=== PATIENT | male | born 1950 | race American Indian/Alaskan Native ===

== ENCOUNTER 2018-08-19 08:26 | Emergency (ER) | payer MEDICARE ==
[2018-08-19] MEDS ORDERED: NACL 0.9% 1000 ML 1,000 ML ONE (09:29)
[2018-08-19] MEDS ORDERED: NACL 0.9% 1000 ML 1,000 ML IV ONE ×2 (09:30→11:12)
--- NOTE | 2018-08-19 10:01 | Emergency Department Report ---
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 Also history of prostate cancer. Patient is presented to the ER with his caregiver stating that he fell this morning and hit his head. Patient stated that he is okay. Patient does have an abrasion to the left forehead. He denied any loss of consciousness or knee weakness numbness or tingling sensation. No bowel or bladder incontinence. Patient found to have a low blood pressure in triage. MD Complaint: fall -: This morning Fall From: standing Fall Witnessed: yes, by living facility s Place Fall Occurred: [facility] Loss of Consciousness: none Prolonged Down Time?: no Symptoms Prior to Fall: none Location: head, neck Severity: moderate Quality: sharp Context: tripped/slipped - Related Data Allergies Allergy/AdvReac Type Severity Reaction Status Date / Time No Known Allergies Allergy Unverified 08/19/18 08:50 ED Review of Systems ROS: Stated complaint: LOW B/P Other details as noted in HPI Comment: All other systems reviewed and negative Constitutional: denies: chills, fever Respiratory: denies: cough, orthopnea, shortness of breath, SOB with exertion, SOB at rest Cardiovascular: denies: chest pain, palpitations, dyspnea on exertion Gastrointestinal: denies: abdominal pain, nausea, vomiting, diarrhea, constipation, hematemesis, melena, hematochezia Neurological: denies: headache, weakness, numbness, paresthesias, confusion, abnormal gait, vertigo ED Past Medical Hx - Past Medical History Additional medical history: PROSTATE CA - Surgical History Past Surgical History?: No - Social History Smoking Status: Never Smoker Substance Use Type: None ED Physical Exam - General Limitations: No Limitations General appearance: alert, in no apparent distress - Head Head exam: Present: other (abrasion to forehead) - ENT ENT exam: Present: normal exam, normal orophraynx - Neck Neck exam: Present: normal inspection, full ROM. Absent: tenderness, meningismus, lymphadenopathy, thyromegaly - Respiratory Respiratory exam: Present: normal lung sounds bilaterally. Absent: respiratory distress, wheezes, rales, rhonchi, stridor, chest wall tenderness, accessory muscle use, decreased breath sounds, prolonged expiratory - Cardiovascular Cardiovascular Exam: Present: regular rate, normal rhythm, normal heart sounds - GI/Abdominal GI/Abdominal exam: Present: soft, normal bowel sounds. Absent: distended, tenderness, guarding, rebound, rigid, organomegaly, mass, bruit, pulsatile mass , hernia - Extremities Exam Extremities exam: Present: normal inspection, full ROM, normal capillary refill. Absent: pedal edema, calf tenderness - Back Exam Back exam: Present: normal inspection, full ROM. Absent: tenderness, CVA tenderness (R), CVA tenderness (L), muscle spasm, paraspinal tenderness, vertebral tenderness - Neurological Exam Neurological exam: Present: alert, oriented X3, CN II-XII intact, normal gait, reflexes normal - Skin Skin exam: Present: warm, intact, normal color ED Course Vital Signs 08/19/18 08/19/18 08/19/18 08:51 09:56 10:00 Temperature 98.7 F Pulse Rate 74 76 79 Respiratory 20 17 Rate Blood Pressure 79/42 102/59 Blood Pressure [Right] O2 Sat by Pulse 97 97 91 Oximetry 08/19/18 10:06 Temperature 98.4 F Pulse Rate 77 Respiratory 17 Rate Blood Pressure Blood Pressure 100/58 [Right] O2 Sat by Pulse 100 Oximetry ED Medical Decision Making - Lab Data Result diagrams: 08/19/18 10:02 08/19/18 10:02 - EKG Data -: EKG Interpreted by Co EKG shows normal: sinus rhythm Rate: normal - EKG Data Interpretation: no acute changes - Radiology Data Radiology results: report reviewed Referring Physician: MADDI SALEH Patient Name: LINN WALDROP Date of : 1950 Sex: Male Report Date: 2018-08-19 Report Status: Finalized Findings [facility] [address] [place] [address] Cat Scan Report Signed Patient: LINN WALDROP MR#: [id number] : 1950 Acct:[id number] Age/Sex: 68 / M ADM Date: 08/19/18 Loc: ED Attending Dr: Ordering Physician: MADDI SALEH Date of Service: 08/19/18 Procedure(s): CT head/brain wo con Accession Number(s): [id number] cc: MADDI SALEH CT HEAD WITHOUT CONTRAST: HISTORY: Fall, head injury. TECHNIQUE: Sequential 2.5mm CT images. COMPARISON: none. FINDINGS: Cerebral Parenchyma: Within normal limits. Cerebellum: Within normal limits. Brainstem: Within normal limits. Ventricles: Normal. Sella: Normal. Extra-axial spaces: Normal. Basal Cisterns: Normal. Intracranial Hemorrhage: None. Midline Shift: None. Calvarium: Normal. Sinuses: Normal. Mastoid Air Cells: Normal. Visualized Orbits: Normal. IMPRESSION: Cranial CT scan within normal limits. Transcribed By: TTR Dictated By: JONELLE XAVIER JR, MD Electronically Authenticated By: JONELLE XAVIER JR, MD Signed Date/Time: 08/19/181046 DD/ 46 TD/TT: 08/19/181046 Referring Physician: MADDI SALEH Patient Name: LINN WALDROP Date of : 1950 Sex: Male Report Date: 2018-08-19 Report Status: Finalized Findings [facility] [address] [place] [address] Cat Scan Report Signed Patient: LINN WALDROP MR#: [id number] : 1950 Acct:[id number] Age/Sex: 68 / M ADM Date: 08/19/18 Loc: ED Attending Dr: Ordering Physician: MADDI SALEH Date of Service: 08/19/18 Procedure(s): CT cervical spine wo con Accession Number(s): [id number] cc: MADDI SALEH CT SCAN OF THE CERVICAL SPINE: HISTORY: Fall, neck pain. TECHNIQUE: Contiguous 1.25 mm axial images of the cervical spine were obtained. Sagittal and coronal reformatted images. FINDINGS: There is normal alignment of the cervical spine. The body, pedicles and posterior ligaments are intact. No evidence of fracture or subluxation is seen. Moderate degenerative disc disease is identified C5-6 and C6-7. Minimal diffuse facet arthropathy. The spinal canal appears normal. The prevertebral soft tissues appear normal. IMPRESSION: Cervical spondylosis. No acute process is noted. 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 Also history of prostate cancer. Patient is presented to the ER with his caregiver stating that he fell this morning and hit his head. Patient stated that he is okay. Patient does have an abrasion to the left forehead. He denied any loss of consciousness or knee weakness numbness or tingling sensation. No bowel or bladder incontinence. Patient found to have a low blood pressure in triage. Patient stated that he is feeling much better. Patient received a liter of IV fluids his blood pressure is now 125/64. Patient received 1 g of Rocephin for UTI. Patient to be discharged back home to his assisted and advised to follow -up with his primary care physician in the next 2-3 days. Patient also informed to return to the ER if his symptoms are not improving. Critical Care Time: Yes Critical care time in (mins) excluding proc time.: 30 Critical care attestation.: If time is entered above; I have spent that time in minutes in the direct care of this critically ill patient, excluding procedure time. ED Disposition Clinical Impression: Fall, Head injury, Neck injury, Hypotension, UTI (urinary tract infection) Disposition: - TO HOME OR SELFCARE Is pt being admited?: No Condition: Stable Instructions: Fall Prevention for Older Adults (ED), Minor Head Injury (ED), Hypotension (ED), Urinary Tract Infection in Men (ED) Referrals: PRIMARY CARE, [Primary Care Provider] - 3-5 Days
[2018-08-19 10:17] LABS: Basophils % (Auto) 0.3 % (0.0-1.8); Eosinophils # (Auto) 0.1 K/mm3 (0.0-0.4); Eosinophils % (Auto) 1.5 % (0.0-4.3); Hematocrit 48.4 % (35.5-45.6); Hemoglobin 16.3 gm/dl (11.8-15.2); Lymphocytes # (Auto) 0.6 K/mm3 (1.2-5.4); Lymphocytes % (Auto) 11.3 % (13.4-35.0); Mean Corpuscular HGB Conc 34 % (32-34); Mean Corpuscular Hemoglobin 36 pg (28-32); Mean Corpuscular Volume 106 fl (84-94); Monocytes # (Auto) 0.5 K/mm3 (0.0-0.8); Monocytes % (Auto) 8.3 % (0.0-7.3); Red Blood Count 4.58 M/mm3 (3.65-5.03); Red Cell Distribution Width 13.9 % (13.2-15.2)
[2018-08-19 10:27] LABS: INR 1.1 (0.87-1.13)
[2018-08-19 10:28] LABS: Partial Thromboplastin Time 26.2 Sec. (24.2-36.6)
[2018-08-19 10:37] LABS: BUN/Creatinine Ratio 21; Blood Urea Nitrogen 30 mg/dL (9-20); Hemolysis Index 24
[2018-08-19 10:45] LABS: Platelet Count 99 K/mm3 (140-440)
--- NOTE | 2018-08-19 10:48 | Cat Scan Report ---
CT HEAD WITHOUT CONTRAST: HISTORY: Fall, head injury. TECHNIQUE: Sequential 2.5mm CT images. COMPARISON: none. FINDINGS: Cerebral Parenchyma: Within normal limits. Cerebellum: Within normal limits. Brainstem: Within normal limits. Ventricles: Normal. Sella: Normal. Extra-axial spaces: Normal. Basal Cisterns: Normal. Intracranial Hemorrhage: None. Midline Shift: None. Calvarium: Normal. Sinuses: Normal. Mastoid Air Cells: Normal. Visualized Orbits: Normal. IMPRESSION: Cranial CT scan within normal limits.
--- NOTE | 2018-08-19 10:50 | Cat Scan Report ---
CT SCAN OF THE CERVICAL SPINE: HISTORY: Fall, neck pain. TECHNIQUE: Contiguous 1.25 mm axial images of the cervical spine were obtained. Sagittal and coronal reformatted images. FINDINGS: There is normal alignment of the cervical spine. The body, pedicles and posterior ligaments are intact. No evidence of fracture or subluxation is seen. Moderate degenerative disc disease is identified C5-6 and C6-7. Minimal diffuse facet arthropathy. The spinal canal appears normal. The prevertebral soft tissues appear normal. IMPRESSION: Cervical spondylosis. No acute process is noted.
[2018-08-19 11:43] LABS: Bilirubin,Urine NEG (Negative); Blood,Urine MOD (Negative); Color,Urine Yellow (Yellow); Mucus,Urine 1+ /HPF
[2018-08-19 11:47] LABS: Protein,Urine >500 mg/dL (Negative); WBC,Urine > 182.0 /HPF (0.0-6.0)
[2018-08-19] MEDS ORDERED: ROCEPHIN/NS 1 GM/50 ML 1 GM/50 ML BAG IV ONE (12:30)
[2018-08-19 12:46] VITALS: BP 145/82
== END 2018-08-19 13:06 | disposition home or self-care (01) ==
LOC: ED 08:26
DX: S09.90XA Unspecified injury of head, initial encounter (principal); S19.9XXA Unspecified injury of neck, initial encounter; I95.9 Hypotension, unspecified; N39.0 Urinary tract infection, site not specified; W01.198A Fall on same level from slipping, tripping and stumbling with subsequent striking against other object, initial encounter; Y93.89 Activity, other specified; Y92.128 Other place in nursing home as the place of occurrence of the external cause; Y99.8 Other external cause status
CPT/HCPCS: 36415; 70450; 72125; 80048; 81001; 84484; 85025; 85610; 85730; 93005; 93010; 96361; 96374; 99291; J0696; J7030

== ENCOUNTER 2018-08-22 13:22 | Inpatient (IN) | payer MEDICARE ==
[2018-08-22 15:02] LABS: Hematocrit 24.9 % (35.5-45.6); Hemoglobin 8.3 gm/dl (11.8-15.2); Mean Corpuscular HGB Conc 33 % (32-34); Mean Corpuscular Hemoglobin 36 pg (28-32); Mean Corpuscular Volume 109 fl (84-94); Red Blood Count 2.29 M/mm3 (3.65-5.03); Red Cell Distribution Width 13.9 % (13.2-15.2)
[2018-08-22 15:06] LABS: Platelet Count 148 K/mm3 (140-440)
--- NOTE | 2018-08-22 16:30 | Emergency Department Report ---
HPI - General Chief Complaint: Medical Clearance Time Seen by Provider: 08/22/18 16:03 - HPI HPI: 68-year-old [place] male presents to the emergency department from his personal long-term with a complaint of a drop in his hemoglobin. Patient was seen here at [facility] on 08/19 after having a fall. He was discharged home with a diagnosis of minor head injury, fall, and a urinary tract infection and prescribed Levaquin. The patient had a follow-up with his primary care physician and had some blood work done that showed a hemoglobin of 7.8. His hemoglobin during his initial emergency Department visit was about 16. The patient has some type of intellectual disability and/or autism and the animal caretaker is not currently bedside. The patient himself says that he has not had any discomfort and it does not appear as if he is having any obvious bleeding. He does have a prostate cancer history. ED Past Medical Hx - Past Medical History Previous Medical History?: Yes Additional medical history: PROSTATE CA hx. Autism, learning disability - Surgical History Past Surgical History?: No - Social History Smoking Status: Never Smoker Substance Use Type: None ED Review of Systems ROS: Stated complaint: HEMOGLOBIN LOW Other details as noted in HPI Comment: All other systems reviewed and negative Constitutional: denies: chills, fever Eyes: denies: eye pain, eye discharge, vision change ENT: denies: ear pain, throat pain Respiratory: denies: cough, shortness of breath, wheezing Cardiovascular: denies: chest pain, palpitations Gastrointestinal: denies: abdominal pain, nausea, diarrhea Genitourinary: denies: urgency, dysuria Musculoskeletal: denies: back pain, joint swelling, arthralgia Skin: denies: rash, lesions Neurological: denies: headache, weakness, paresthesias Physical Exam - Physical Exam Vital Signs: Vital Signs 08/22/18 08/22/18 08/22/18 13:51 15:50 15:51 Temperature 99.7 F H Pulse Rate 92 H Respiratory 16 15 13 Rate Blood Pressure 108/65 138/76 O2 Sat by Pulse 100 93 Oximetry 08/22/18 08/22/18 08/22/18 15:53 15:55 15:57 Temperature 97.9 F Pulse Rate 79 71 Respiratory 15 10 L Rate Blood Pressure 138/76 138/76 O2 Sat by Pulse 97 Oximetry Physical Exam: GENERAL: The patient is well-developed well-nourished. HENT: Normocephalic. Atraumatic. Patient has moist mucous membranes. EYES: Extraocular motions are intact. Pupils equal reactive to light bilaterally. NECK: Supple. Trachea is midline. CHEST/LUNGS: Clear to auscultation. There is no respiratory distress noted. HEART/CARDIOVASCULAR: Regular. There is no tachycardia. There is no murmur. ABDOMEN: Abdomen is soft, nontender. Patient has normal bowel sounds. There is no abdominal distention. SKIN: Skin is warm and dry. NEURO: The patient is awake, alert and cooperative. The patient has no focal neurologic deficits. Cranial nerves II through XII grossly intact. MUSCULOSKELETAL: There is no tenderness or deformity. There is no limitation range of motion. There is no evidence of acute injury. RECTAL: No gross blood. Stool positive on guaiac testing. ED Course Vital Signs 08/22/18 08/22/18 08/22/18 13:51 15:50 15:51 Temperature 99.7 F H Pulse Rate 92 H Respiratory 16 15 13 Rate Blood Pressure 108/65 138/76 O2 Sat by Pulse 100 93 Oximetry 08/22/18 08/22/18 08/22/18 15:53 15:55 15:57 Temperature 97.9 F Pulse Rate 79 71 Respiratory 15 10 L Rate Blood Pressure 138/76 138/76 O2 Sat by Pulse 97 Oximetry - Consultations Consultation #1: I spoke with the specialist icu talent acquisition assistant, Dr. Richards. The patient did have positive stool guaiac testing but there is no gross blood or melena seen. The patient's BUN also does not appear consistent with a GI bleed. However since there was the positive guaiac testing and this patient has had a large drop in his hemoglobin over the past 3 days, GI has agreed to see the patient has a consult. 08/22/18 23:05 ED Medical Decision Making - Lab Data Result diagrams: 08/22/18 19:44 08/22/18 16:32 - Radiology Data Radiology results: report reviewed PROCEDURE: CT ABDOMEN PELVIS W CON TECHNIQUE: Computerized axial tomography of the abdomen and pelvis was performed after the IV injection of iodinated nonionic contrast. HISTORY: abd pain, looking for source of bleeding COMPARISON: No prior studies are available for comparison. FINDINGS: Liver, spleen, adrenal glands are within normal limits. Left kidney is unremarkable. Right kidney demonstrates a well-defined simple cyst measuring 6.8 x 7.3 centimeters. Pancreatic duct is mildly dilated measuring 3.5 millimeters in the proximal body. There is no obstructive uropathy. Urinary bladder appears to have a large posterior diverticula and its louis are diffusely thickened with ill-defined outlines. Aorta is of normal caliber. There is no free fluid or free air. Gallbladder is unremarkable. Small bowel loops are within normal limits. Moderate degree residual stool is noted. Appendix is normal. Moderate degree degenerative changes are noted involving the lumbar spine. Vertebral height is normal. IMPRESSION: Urinary bladder is diffusely thickened and appears to contain a large posterior diverticulum. Cystitis is suspected. No obstructive uropathy. Pancreatic duct is mildly dilated. Clinical correlation is recommended. Transcribed By: [facility] Dictated By: ZACARIAS SANFORD Electronically Authenticated By: ZACARIAS SANFORD Signed Date/Time: 08/22/182038 - Medical Decision Making This patient came in for evaluation after a follow-up with his primary care physician showed about a 9 g drop in his hemoglobin in about 24 hours. He was here 3 days ago for a fall and had hemoglobin of 16.3 at that time. His hemoglobin for his PCP was about 7.5. Today it was 8.3 and 8.7. He has no complaints of any significant discomfort and no complaints of any recent bleeding. I did a rectal examination and there was no gross blood seen but stool was positive on guaiac testing. CT scan of the abdomen and pelvis was done with IV contrast that did not show any malignancy, obvious source of bleeding. It does show cystitis and the patient does have a urinary tract infection. It is possible the patient's first CBC 3 days ago was a false normal. However if that is not the case and the patient had a 9 g drop in hemoglobin and will need further evaluation as to why. The patient will be admitted to the hospital for further evaluation and gastroenterology consultation was accepted for admission by the hospitalist, Dr. Rose. - Differential Diagnosis malignancy, hemorrhoids, diverticulosis, iron deficiency Critical Care Time: No Critical care attestation.: If time is entered above; I have spent that time in minutes in the direct care of this critically ill patient, excluding procedure time. ED Disposition Clinical Impression: UTI (urinary tract infection) Qualifiers: Urinary tract infection type: acute cystitis Hematuria presence: with hematuria Qualified Code(s): N30.01 - Acute cystitis with hematuria Anemia Qualifiers: Anemia type: unspecified type Qualified Code(s): D64.9 - Anemia, unspecified Disposition: OP ADMIT IP TO THIS HOSP Is pt being admited?: Yes Condition: Fair Referrals: PRIMARY CARE, [Primary Care Provider] - 3-5 Days Time of Disposition: 23:09
[2018-08-22 16:56] LABS: INR 1.05 (0.87-1.13); Partial Thromboplastin Time 26.9 Sec. (24.2-36.6)
[2018-08-22 16:59] LABS: Alanine Aminotransferase 30 units/L (7-56); Albumin 4.1 g/dL (3.9-5); BUN/Creatinine Ratio 13; Blood Urea Nitrogen 15 mg/dL (9-20); Calcium 9.1 mg/dL (8.4-10.2); Hemolysis Index 41
[2018-08-22 17:28] LABS: Bilirubin,Urine NEG (Negative); Blood,Urine MOD (Negative); Color,Urine Yellow (Yellow); Urobilinogen,Urine < 2.0 mg/dL (<2.0)
[2018-08-22 17:29] LABS: WBC,Urine > 182.0 /HPF (0.0-6.0)
[2018-08-22] MEDS ORDERED: ROCEPHIN/NS 1 GM/50 ML 1 GM/50 ML BAG IV ONE (17:53)
[2018-08-22 19:53] LABS: Hematocrit 25.4 % (35.5-45.6); Hemoglobin 8.7 gm/dl (11.8-15.2)
--- NOTE | 2018-08-22 20:41 | Cat Scan Report ---
FINAL REPORT PROCEDURE: CT ABDOMEN PELVIS W CON TECHNIQUE: Computerized axial tomography of the abdomen and pelvis was performed after the IV injection of iodinated nonionic contrast. HISTORY: abd pain, looking for source of bleeding COMPARISON: No prior studies are available for comparison. FINDINGS: Liver, spleen, adrenal glands are within normal limits. Left kidney is unremarkable. Right kidney demonstrates a well-defined simple cyst measuring 6.8 x 7.3 centimeters. Pancreatic duct is mildly dilated measuring 3.5 millimeters in the proximal body. There is no obstructive uropathy. Urinary bladder appears to have a large posterior diverticula and its louis are diffusely thickened with ill-defined outlines. Aorta is of normal caliber. There is no free fluid or free air. Gallbladder is unremarkable. Small bowel loops are within normal limits. Moderate degree residual stool is noted. Appendix is normal. Moderate degree degenerative changes are noted involving the lumbar spine. Vertebral height is normal. IMPRESSION: Urinary bladder is diffusely thickened and appears to contain a large posterior diverticulum. Cystitis is suspected. No obstructive uropathy. Pancreatic duct is mildly dilated. Clinical correlation is recommended.
[2018-08-22] MEDS ORDERED: TYLENOL PO PRN (23:05)
[2018-08-22] MEDS ORDERED: SODIUM CHLORIDE FLUSH SYRINGE 10 ML IV PRN (23:05)
[2018-08-22] MEDS ORDERED: ZOFRAN IV PRN (23:05)
--- NOTE | 2018-08-22 23:09 | History and Physical Report ---
History of Present Illness Date of examination: 08/22/18 History of present illness: 68-year-old man with a history of prostate cancer, autism with recent from today primary care's office after lab work was done. It showed that he is a drop in his hemoglobin from 16 to 8. Patient cannot give a history, review of system unobtainable. PAST MEDICAL HISTORY: Prostate cancer PAST SURGICAL HISTORY: Unknown SOCIAL HISTORY: No alcohol, no drugs, tobacco FAMILY HISTORY: Unknown Medications and Allergies Allergies Allergy/AdvReac Type Severity Reaction Status Date / Time No Known Allergies Allergy Unverified 08/19/18 08:50 Exam - Physical Exam Narrative exam: Gen. appearance: Patient lying in bed, no apparent distress HEENT: Normocephalic, atraumatic, pupils equally round and reactive to light, extraocular movement intact, and no sclericterus,. No JVD or thyromegaly or nodule,neck supple, no carotid bruit ,mucous membranes moist, no exudate or erythema Heart: S1, S2, regular rate and rhythm Lungs: Clear bilaterally, breathing comfortable Abdomen: Positive bowel sounds, non-tender, nondistended, no organomegaly Extremity:no edema cyanosis, clubbing Skin: no rash, dry, warm Neuro: Oriented 3, cranial nerves II-12 intact, speech is fluent, motor and sensory intact Rectal: heme positive - Constitutional Vitals: Temp Pulse Resp BP Pulse Ox 98.1 F 75 16 137/87 96 08/22/18 20:24 08/22/18 20:24 08/22/18 20:24 08/22/18 20:24 08/22/18 20:24 Results - Labs CBC & Chem 7: 08/22/18 19:44 08/22/18 16:32 Labs: Abnormal lab results 08/22/18 08/22/18 08/22/18 Range/Units 14:45 17:04 19:44 RBC 2.29 L (3.65-5.03) M/mm3 Hgb 8.3 L 8.7 L (11.8-15.2) gm/dl Hct 24.9 L 25.4 L (35.5-45.6) % MCV 109 H (84-94) fl MCH 36 H (28-32) pg Urine WBC (Auto) > 182.0 H (0.0-6.0) /HPF - Imaging and Cardiology CT scan - abdomen: report reviewed CT scan - pelvis: report reviewed Assessment and Plan Assessment GI bleed Blood loss anemia Urinary tract infection History of prostate cancer Plan Admit to medicine check serial hemoglobin, start Protonix, IV fluid Unclear if this is a true drop in his hemoglobin as his labs appear to be hemoconcentrated On previous lab Consult GI, start IV Rocephin, follow cultures DVT prophylaxis
[2018-08-23 00:39] LABS: Hematocrit 24.8 % (35.5-45.6); Hemoglobin 8.3 gm/dl (11.8-15.2)
[2018-08-23 05:58] LABS: Basophils % (Auto) 0.5 % (0.0-1.8); Eosinophils # (Auto) 0.3 K/mm3 (0.0-0.4); Eosinophils % (Auto) 3.9 % (0.0-4.3); Hematocrit 23.8 % (35.5-45.6); Hemoglobin 8.1 gm/dl (11.8-15.2); Lymphocytes # (Auto) 1.9 K/mm3 (1.2-5.4); Mean Corpuscular HGB Conc 34 % (32-34); Mean Corpuscular Hemoglobin 36 pg (28-32); Mean Corpuscular Volume 105 fl (84-94); Monocytes # (Auto) 0.9 K/mm3 (0.0-0.8); Monocytes % (Auto) 13.4 % (0.0-7.3); Platelet Count 195 K/mm3 (140-440); Red Blood Count 2.27 M/mm3 (3.65-5.03); Red Cell Distribution Width 13.5 % (13.2-15.2)
[2018-08-23 06:14] LABS: BUN/Creatinine Ratio 11; Blood Urea Nitrogen 12 mg/dL (9-20); Calcium 8.5 mg/dL (8.4-10.2); Hemolysis Index 11
--- NOTE | 2018-08-23 08:36 | Progress Note ---
Assessment and Plan Assessment and plan: --Severe anemia; Significant drop of hemoglobin from 16-8, last 3-4 days Type and cross, transfuse PRBC as needed --Possible GI bleeding; IV Protonix, nothing by mouth status, follow GI evaluation and recommendations Possible endoscopy --History of prostate cancer; supportive care Consult urology if needed --Thrombocytopenia; closely monitor Consult hematology if needed --History of autism; supportive care --Urinary tract infection; as per urine analysis Empiric antibiotics, follow cultures, IV fluids --DVT prophylaxis; SCD No pharmacologic anticoagulation in view of GI bleeding History Interval history: Patient seen and examined medical records reviewed Admitted with acute GI bleeding, significant drop in H&H Patient seen alert and awake Vital signs noted Hospitalist Physical - Constitutional Vitals: Temp Pulse Resp BP Pulse Ox 98.2 F 77 20 143/67 95 08/23/18 05:15 08/23/18 05:15 08/23/18 05:15 08/23/18 05:15 08/23/18 05:15 General appearance: Present: no acute distress, well-nourished - EENT Eyes: Present: PERRL, EOM intact - Neck Neck: Present: supple, normal ROM - Respiratory Respiratory effort: normal Respiratory: bilateral: diminished, negative: rales, rhonchi, wheezing - Cardiovascular Rhythm: regular Heart Sounds: Present: S1 & S2 - Extremities Extremities: no ischemia, No edema - Abdominal General gastrointestinal: soft, non-tender, non-distended, normal bowel sounds - Integumentary Integumentary: Present: clear, warm - Psychiatric Psychiatric: appropriate mood/affect, cooperative - Neurologic Neurologic: CNII-XII intact, moves all extremities Results - Labs CBC & Chem 7: 08/23/18 06:36 08/23/18 05:35 Labs: Laboratory Last Values WBC 6.9 K/mm3 (4.5-11.0) 08/23/18 05:35 RBC 2.27 M/mm3 (3.65-5.03) L 08/23/18 05:35 Hgb 8.0 gm/dl (11.8-15.2) L 08/23/18 06:36 Hct 23.0 % (35.5-45.6) L 08/23/18 06:36 MCV 105 fl (84-94) H 08/23/18 05:35 MCH 36 pg (28-32) H 08/23/18 05:35 MCHC 34 % (32-34) 08/23/18 05:35 RDW 13.5 % (13.2-15.2) 08/23/18 05:35 Plt Count 195 K/mm3 (140-440) 08/23/18 05:35 Lymph % (Auto) 28.0 % (13.4-35.0) 08/23/18 05:35 [place] % (Auto) 13.4 % (0.0-7.3) H 08/23/18 05:35 Eos % (Auto) 3.9 % (0.0-4.3) 08/23/18 05:35 Baso % (Auto) 0.5 % (0.0-1.8) 08/23/18 05:35 Lymph # 1.9 K/mm3 (1.2-5.4) 08/23/18 05:35 [place] # 0.9 K/mm3 (0.0-0.8) H 08/23/18 05:35 Eos # 0.3 K/mm3 (0.0-0.4) 08/23/18 05:35 Baso # 0.0 K/mm3 (0.0-0.1) 08/23/18 05:35 Seg Neutrophils % 54.2 % (40.0-70.0) 08/23/18 05:35 Seg Neutrophils # 3.7 K/mm3 (1.8-7.7) 08/23/18 05:35 PT 14.2 Sec. (12.2-14.9) 08/22/18 16:32 INR 1.05 (0.87-1.13) 08/22/18 16:32 APTT 26.9 Sec. (24.2-36.6) 08/22/18 16:32 Sodium 145 mmol/L (137-145) 08/23/18 05:35 Potassium 3.9 mmol/L (3.6-5.0) 08/23/18 05:35 Chloride 109.5 mmol/L (98-107) H 08/23/18 05:35 Carbon Dioxide 26 mmol/L (22-30) 08/23/18 05:35 Anion Gap 13 mmol/L 08/23/18 05:35 BUN 12 mg/dL (9-20) 08/23/18 05:35 Creatinine 1.1 mg/dL (0.8-1.5) 08/23/18 05:35 Estimated GFR > 60 ml/min 08/23/18 05:35 BUN/Creatinine Ratio 11 % 08/23/18 05:35 Glucose 97 mg/dL (75-100) 08/23/18 05:35 Calcium 8.5 mg/dL (8.4-10.2) 08/23/18 05:35 Total Bilirubin 0.30 mg/dL (0.1-1.2) 08/22/18 16:32 AST 39 units/L (5-40) 08/22/18 16:32 ALT 30 units/L (7-56) 08/22/18 16:32 Alkaline Phosphatase 81 units/L (35-129) 08/22/18 16:32 Total Protein 6.9 g/dL (6.3-8.2) 08/22/18 16:32 Albumin 4.1 g/dL (3.9-5) 08/22/18 16:32 Albumin/Globulin Ratio 1.5 % 08/22/18 16:32 Urine Color Yellow (Yellow) 08/22/18 17:04 Urine Turbidity Cloudy (Clear) 08/22/18 17:04 Urine pH 5.0 (5.0-7.0) 08/22/18 17:04 Ur Specific [place] 1.011 (1.003-1.030) 08/22/18 17:04 Urine Protein 100 mg/dl mg/dL (Negative) 08/22/18 17:04 Urine Glucose (UA) 50 mg/dL (Negative) 08/22/18 17:04 Urine Ketones Neg mg/dL (Negative) 08/22/18 17:04 Urine Blood Mod (Negative) 08/22/18 17:04 Urine Nitrite Neg (Negative) 08/22/18 17:04 Urine Bilirubin Neg (Negative) 08/22/18 17:04 Urine Urobilinogen < 2.0 mg/dL (<2.0) 08/22/18 17:04 Ur Leukocyte Esterase Lg (Negative) 08/22/18 17:04 Urine WBC (Auto) > 182.0 /HPF (0.0-6.0) H 08/22/18 17:04 Urine RBC (Auto) 39.0 /HPF (0.0-6.0) 08/22/18 17:04 U Epithel Cells (Auto) < 1.0 /HPF (0-13.0) 08/22/18 17:04 Urine Yeast (Budding) 1+ /HPF 08/22/18 17:04 Blood Type O POSITIVE 08/22/18 16:34 Antibody Screen Negative 08/22/18 16:34
[2018-08-23] MEDS: PROTONIX IV SCH (10:00)
[2018-08-23] MEDS: SODIUM CHLORIDE FLUSH SYRINGE 10 ML IV SCH ×2 (10:01→21:10)
[2018-08-23] MEDS: NACL 0.45% 1000 ML 1,000 ML IV SCH (10:09)
--- NOTE | 2018-08-23 10:56 | Consultation ---
History of Present Illness - Reason for Consult Consult date: 08/23/18 Anemia - History of Present Illness Mr. Olivo is a 68-year-old man who lives in a personal care facility. He has a history of autism and developmental delay. He was referred to the hospital by his primary care physician for anemia with a hemoglobin of 7.8. He was in the hospital on August 19 for evaluation after falling and striking his head. At that time, Baseline labs showed a hemoglobin of 16.3 with an MCV of 106 and BUN of 30 and a creatinine of 1.4. Here, he has a hemoglobin of 8.0 now with an MCV of 105 and BUN of 12 with a creatinine of 1.1. There is no reported history of blood loss. Evaluation in the emergency room including a rectal exam showed no henry blood though his stool was noted to be Hemoccult-positive. Patient has no history of abdominal pain nausea vomiting or change in bowel movements. Unfortunately there is no caregiver available in the room who can give any details of what may have happened in the last 3 days. Patient had a CT of the abdomen done with IV contrast which showed no evidence of intraperitoneal bleeding. Past History Past Medical History: other (autism, prostate cancer - details unknown) Social history: other (Lives in personal [facility]). denies: smoking, alcohol abuse Family history: no significant family history (Hx unavailable) Medications and Allergies Allergies Allergy/AdvReac Type Severity Reaction Status Date / Time No Known Allergies Allergy Unverified 08/19/18 08:50 Active Meds: Active Medications Acetaminophen (Tylenol) 650 mg PO Q4H PRN PRN Reason: Pain MILD(1-3)/Fever >100.5/BRICE Sodium Chloride (Nacl 0.45% 1000 Ml) 1,000 mls @ 50 mls/hr IV DIRECT [facility] Last Admin: 08/23/18 10:09 Dose: 50 mls/hr Ondansetron HCl (Zofran) 4 mg IV Q8H PRN PRN Reason: Nausea And Vomiting Pantoprazole Sodium (Protonix) 40 mg IV DAILY [facility] Last Admin: 08/23/18 10:00 Dose: 40 mg Sodium Chloride (Sodium Chloride Flush Syringe 10 Ml) 10 ml IV BID [facility] Last Admin: 08/23/18 10:01 Dose: 10 ml Sodium Chloride (Sodium Chloride Flush Syringe 10 Ml) 10 ml IV PRN PRN PRN Reason: LINE FLUSH Review of Systems ROS unobtainable: due to mental status All systems: negative (basically negative, but difficult to assess in this patient) Exam - Constitutional Vitals: Temp Pulse Resp BP Pulse Ox 98.2 F 77 20 143/67 99 08/23/18 05:15 08/23/18 05:15 08/23/18 05:15 08/23/18 05:15 08/23/18 09:44 General appearance: Present: no acute distress, other (abrasion on forehead) - EENT Eyes: Present: PERRL, EOM intact ENT: hearing intact - Respiratory Respiratory effort: normal Respiratory: bilateral: CTA - Cardiovascular Rhythm: regular Heart Sounds: Present: S1 & S2 - Extremities Extremities: No edema - Abdominal General gastrointestinal: Present: soft, non-tender. Absent: mass - Rectal Rectal Exam: other (Heme + with no henry blood, per ER) Results - Labs CBC & Chem 7: 08/23/18 06:36 08/23/18 05:35 Labs: Abnormal lab results 08/22/18 08/22/18 08/22/18 Range/Units 14:45 17:04 19:44 RBC 2.29 L (3.65-5.03) M/mm3 Hgb 8.3 L 8.7 L (11.8-15.2) gm/dl Hct 24.9 L 25.4 L (35.5-45.6) % MCV 109 H (84-94) fl MCH 36 H (28-32) pg [place] % (Auto) (0.0-7.3) % [place] # (0.0-0.8) K/mm3 Chloride (98-107) mmol/L Urine WBC (Auto) > 182.0 H (0.0-6.0) /HPF 08/22/18 08/23/18 08/23/18 Range/Units 23:20 05:35 05:35 RBC 2.27 L (3.65-5.03) M/mm3 Hgb 8.3 L 8.1 L (11.8-15.2) gm/dl Hct 24.8 L 23.8 L (35.5-45.6) % MCV 105 H (84-94) fl MCH 36 H (28-32) pg [place] % (Auto) 13.4 H (0.0-7.3) % [place] # 0.9 H (0.0-0.8) K/mm3 Chloride 109.5 H (98-107) mmol/L Urine WBC (Auto) (0.0-6.0) /HPF 08/23/18 Range/Units 06:36 RBC (3.65-5.03) M/mm3 Hgb 8.0 L (11.8-15.2) gm/dl Hct 23.0 L (35.5-45.6) % MCV (84-94) fl MCH (28-32) pg [place] % (Auto) (0.0-7.3) % [place] # (0.0-0.8) K/mm3 Chloride (98-107) mmol/L Urine WBC (Auto) (0.0-6.0) /HPF Assessment and Plan 1. Anemia - apparently acute onset over 3 days, with no reported henry bleeding. Pt does have Heme+ stool. This is quite perplexing, and raises the possibility that the original Hgb may have been inaccurate. Pt has macrocytosis of unclear etiology. - will get more hx from [facility] - check iron stores and B12 - monitor H/H - likely do EGD/Colonoscopy on 08/25/18
[2018-08-23 11:50] LABS: Iron 48 ug/dL (49-181); Total Iron Binding Capacity 171 mcg/dL (250-450)
[2018-08-24 04:37] LABS: Basophils # (Auto) 0.1 K/mm3 (0.0-0.1); Basophils % (Auto) 0.8 % (0.0-1.8); Eosinophils # (Auto) 0.1 K/mm3 (0.0-0.4); Hematocrit 26.4 % (35.5-45.6); Hemoglobin 8.9 gm/dl (11.8-15.2); Lymphocytes # (Auto) 1.8 K/mm3 (1.2-5.4); Lymphocytes % (Auto) 26.2 % (13.4-35.0); Mean Corpuscular HGB Conc 34 % (32-34); Mean Corpuscular Hemoglobin 36 pg (28-32); Mean Corpuscular Volume 105 fl (84-94); Monocytes # (Auto) 0.8 K/mm3 (0.0-0.8); Monocytes % (Auto) 11.3 % (0.0-7.3); Platelet Count 245 K/mm3 (140-440); Red Blood Count 2.51 M/mm3 (3.65-5.03); Red Cell Distribution Width 13.7 % (13.2-15.2)
[2018-08-24 05:01] LABS: Alanine Aminotransferase 28 units/L (7-56); Albumin 3.7 g/dL (3.9-5); BUN/Creatinine Ratio 10; Blood Urea Nitrogen 13 mg/dL (9-20); Calcium 8.6 mg/dL (8.4-10.2); Hemolysis Index 18
--- NOTE | 2018-08-24 08:07 | Progress Note ---
Assessment and Plan Assessment and plan: --Severe anemia; hemoglobin levels trending up 8.9 today No evidence of bleeding ,transfuse PRBC as needed --Possible GI bleeding; IV Protonix, nothing by mouth status, GI evaluation noted Possible EGD and colonoscopy tomorrow --History of prostate cancer; supportive care Consult urology if needed --Thrombocytopenia; closely monitor Consult hematology if needed --History of autism; supportive care --Urinary tract infection; as per urine analysis Received 1 dose of Rocephin in ED empirically Urine cultures negative , UTI ruled out --DVT prophylaxis; SCD No pharmacologic anticoagulation in view of GI bleeding Follow EGD colonoscopy, if negative and patient is stable May be discharged tomorrow Plan of care is reviewed with the patient and his nurse History Interval history: Patient seen and examined medical records reviewed No new episodes of bleeding GI evaluation noted, possible EGD and colonoscopy tomorrow Vital signs noted Patient has no new complaints Hospitalist Physical - Constitutional Vitals: Temp Pulse Resp BP Pulse Ox 98.8 F 72 20 126/57 96 08/24/18 05:22 08/24/18 05:22 08/24/18 05:22 08/24/18 05:22 08/24/18 05:22 General appearance: Present: no acute distress, well-nourished - EENT Eyes: Present: PERRL, EOM intact - Neck Neck: Present: supple, normal ROM - Respiratory Respiratory effort: normal Respiratory: bilateral: diminished, negative: rales, rhonchi, wheezing - Cardiovascular Rhythm: regular Heart Sounds: Present: S1 & S2 - Extremities Extremities: no ischemia, No edema - Abdominal General gastrointestinal: soft, non-tender, non-distended, normal bowel sounds - Integumentary Integumentary: Present: clear, warm - Psychiatric Psychiatric: appropriate mood/affect, cooperative, other (autistic) - Neurologic Neurologic: moves all extremities Results - Labs CBC & Chem 7: 08/24/18 04:15 08/24/18 04:15 Labs: Laboratory Last Values WBC 6.8 K/mm3 (4.5-11.0) 08/24/18 04:15 RBC 2.51 M/mm3 (3.65-5.03) L 08/24/18 04:15 Hgb 8.9 gm/dl (11.8-15.2) L 08/24/18 04:15 Hct 26.4 % (35.5-45.6) L 08/24/18 04:15 MCV 105 fl (84-94) H 08/24/18 04:15 MCH 36 pg (28-32) H 08/24/18 04:15 MCHC 34 % (32-34) 08/24/18 04:15 RDW 13.7 % (13.2-15.2) 08/24/18 04:15 Plt Count 245 K/mm3 (140-440) 08/24/18 04:15 Lymph % (Auto) 26.2 % (13.4-35.0) 08/24/18 04:15 [place] % (Auto) 11.3 % (0.0-7.3) H 08/24/18 04:15 Eos % (Auto) 2.0 % (0.0-4.3) 08/24/18 04:15 Baso % (Auto) 0.8 % (0.0-1.8) 08/24/18 04:15 Lymph # 1.8 K/mm3 (1.2-5.4) 08/24/18 04:15 [place] # 0.8 K/mm3 (0.0-0.8) 08/24/18 04:15 Eos # 0.1 K/mm3 (0.0-0.4) 08/24/18 04:15 Baso # 0.1 K/mm3 (0.0-0.1) 08/24/18 04:15 Seg Neutrophils % 59.7 % (40.0-70.0) 08/24/18 04:15 Seg Neutrophils # 4.1 K/mm3 (1.8-7.7) 08/24/18 04:15 PT 14.2 Sec. (12.2-14.9) 08/22/18 16:32 INR 1.05 (0.87-1.13) 08/22/18 16:32 APTT 26.9 Sec. (24.2-36.6) 08/22/18 16:32 Sodium 146 mmol/L (137-145) H 08/24/18 04:15 Potassium 3.9 mmol/L (3.6-5.0) 08/24/18 04:15 Chloride 108.9 mmol/L (98-107) H 08/24/18 04:15 Carbon Dioxide 24 mmol/L (22-30) 08/24/18 04:15 Anion Gap 17 mmol/L 08/24/18 04:15 BUN 13 mg/dL (9-20) 08/24/18 04:15 Creatinine 1.3 mg/dL (0.8-1.5) 08/24/18 04:15 Estimated GFR > 60 ml/min 08/24/18 04:15 BUN/Creatinine Ratio 10 % 08/24/18 04:15 Glucose 88 mg/dL (75-100) 08/24/18 04:15 Calcium 8.6 mg/dL (8.4-10.2) 08/24/18 04:15 Magnesium 2.30 mg/dL (1.7-2.3) 08/24/18 04:15 Iron 48 ug/dL (49-181) L 08/23/18 11:12 TIBC 171 mcg/dL (250-450) L 08/23/18 11:12 Ferritin 648.3 ng/mL (13.0-400.0) H 08/23/18 11:12 Total Bilirubin 0.30 mg/dL (0.1-1.2) 08/24/18 04:15 AST 34 units/L (5-40) 08/24/18 04:15 ALT 28 units/L (7-56) 08/24/18 04:15 Alkaline Phosphatase 76 units/L (35-129) 08/24/18 04:15 Total Protein 6.9 g/dL (6.3-8.2) 08/24/18 04:15 Albumin 3.7 g/dL (3.9-5) L 08/24/18 04:15 Albumin/Globulin Ratio 1.2 % 08/24/18 04:15 Vitamin B12 712.8 pg/mL (211-911) 08/23/18 11:12 Urine Color Yellow (Yellow) 08/22/18 17:04 Urine Turbidity Cloudy (Clear) 08/22/18 17:04 Urine pH 5.0 (5.0-7.0) 08/22/18 17:04 Ur Specific [place] 1.011 (1.003-1.030) 08/22/18 17:04 Urine Protein 100 mg/dl mg/dL (Negative) 08/22/18 17:04 Urine Glucose (UA) 50 mg/dL (Negative) 08/22/18 17:04 Urine Ketones Neg mg/dL (Negative) 08/22/18 17:04 Urine Blood Mod (Negative) 08/22/18 17:04 Urine Nitrite Neg (Negative) 08/22/18 17:04 Urine Bilirubin Neg (Negative) 08/22/18 17:04 Urine Urobilinogen < 2.0 mg/dL (<2.0) 08/22/18 17:04 Ur Leukocyte Esterase Lg (Negative) 08/22/18 17:04 Urine WBC (Auto) > 182.0 /HPF (0.0-6.0) H 08/22/18 17:04 Urine RBC (Auto) 39.0 /HPF (0.0-6.0) 08/22/18 17:04 U Epithel Cells (Auto) < 1.0 /HPF (0-13.0) 08/22/18 17:04 Urine Yeast (Budding) 1+ /HPF 08/22/18 17:04 Blood Type O POSITIVE 08/22/18 16:34 Antibody Screen Negative 08/22/18 16:34
[2018-08-24] MEDS: PROTONIX IV SCH (10:09)
[2018-08-24] MEDS: SODIUM CHLORIDE FLUSH SYRINGE 10 ML IV SCH ×2 (10:09→21:12)
--- NOTE | 2018-08-24 18:36 | Progress Note ---
Assessment and Plan 1. Anemia - apparently acute onset over 3 days, with no reported henry bleeding. Pt does have Heme+ stool. This is quite perplexing, and raises the possibility that the original Hgb may have been inaccurate. Pt has macrocytosis of unclear etiology. Iron studies and B12 are normal. - Spoke with Deepak Mcdaniel from [facility], taking care of him since 2003. Pt is competent to give consent. - EGD/Colonoscopy Subjective Date of service: 08/24/18 Interval history: Pt doing well. No complaints. Objective - Constitutional Vitals: Vital Signs - 12hr 08/24/18 08/24/18 08:46 16:06 Temperature 98.5 F 98.3 F Pulse Rate 77 65 Respiratory 16 18 Rate Blood Pressure 137/61 129/65 O2 Sat by Pulse 96 100 Oximetry General appearance: Present: no acute distress - EENT Eyes: PERRL, EOM intact ENT: hearing intact - Respiratory Respiratory effort: normal - Gastrointestinal General gastrointestinal: Present: soft, non-tender - Labs CBC & Chem 7: 08/24/18 04:15 08/24/18 04:15 Labs: Abnormal lab results 08/24/18 08/24/18 Range/Units 04:15 04:15 RBC 2.51 L (3.65-5.03) M/mm3 Hgb 8.9 L (11.8-15.2) gm/dl Hct 26.4 L (35.5-45.6) % MCV 105 H (84-94) fl MCH 36 H (28-32) pg [place] % (Auto) 11.3 H (0.0-7.3) % Sodium 146 H (137-145) mmol/L Chloride 108.9 H (98-107) mmol/L Albumin 3.7 L (3.9-5) g/dL
[2018-08-24] MEDS ORDERED: GOLYTELY PO ONE (19:00)
[2018-08-24] MEDS: NACL 0.45% 1000 ML 1,000 ML IV SCH (21:14)
[2018-08-25] MEDS ORDERED: DULCOLAX PO PRN (00:44)
[2018-08-25] MEDS ORDERED: GOLYTELY PO ONE (00:46)
[2018-08-25 06:14] LABS: Basophils % (Auto) 0.6 % (0.0-1.8); Eosinophils # (Auto) 0.1 K/mm3 (0.0-0.4); Eosinophils % (Auto) 1.3 % (0.0-4.3); Hematocrit 31.7 % (35.5-45.6); Hemoglobin 10.5 gm/dl (11.8-15.2); Lymphocytes # (Auto) 2.3 K/mm3 (1.2-5.4); Lymphocytes % (Auto) 28.1 % (13.4-35.0); Mean Corpuscular HGB Conc 33 % (32-34); Mean Corpuscular Hemoglobin 35 pg (28-32); Mean Corpuscular Volume 106 fl (84-94); Monocytes # (Auto) 0.8 K/mm3 (0.0-0.8); Platelet Count 306 K/mm3 (140-440); Red Blood Count 2.99 M/mm3 (3.65-5.03)
[2018-08-25 06:38] LABS: BUN/Creatinine Ratio 9; Blood Urea Nitrogen 13 mg/dL (9-20); Calcium 8.9 mg/dL (8.4-10.2); Hemolysis Index 27
[2018-08-25] MEDS: SODIUM CHLORIDE FLUSH SYRINGE 10 ML IV SCH ×2 (10:20→22:18)
[2018-08-25] MEDS ORDERED: K-DUR PO ONE ×2 (11:02→20:00)
[2018-08-25] MEDS ORDERED: WATER FOR IRRIG STERILE IR ONE (14:23)
[2018-08-25] MEDS: NACL 0.9% 1000 ML 1,000 ML IV SCH ×2 (15:33→22:24)
--- NOTE | 2018-08-25 16:09 | Anesthesia Consultation ---
Anesthesia Consult and Med Hx Date of service: 08/25/18 - Airway Anesthetic Teeth Evaluation: Poor (some missing teeth) ROM Head & Neck: Adequate Mental/Hyoid Distance: Adequate Mallampati Class: Class II Intubation Access Assessment: Probably Good - Pre-Operative Health Status ASA Pre-Surgery Classification: ASA3 Proposed Anesthetic Plan: MAC - Central Nervous System Hx Psychiatric Problems: Yes (autism) - Hematic Hx Anemia: Yes - Other Systems Hx Cancer: Yes (prostate cancer)
--- NOTE | 2018-08-25 16:10 | Anesthesia Day of Surgery ---
Anesthesia Day of Surgery - Day of Surgery Patient Examined: Yes Patient H&P Reviewed: Yes Patient is NPO: Yes
[2018-08-25] MEDS ORDERED: DIPRIVAN 10 MG/ML IV ONE ×2 (16:24→16:25)
[2018-08-25] MEDS ORDERED: VERSED ONE (16:25)
[2018-08-25] MEDS ORDERED: XYLOCAINE CARDIAC IV ONE (16:30)
[2018-08-25] MEDS ORDERED: INFANTS' GAS RELIEF PO ONE (16:58)
--- NOTE | 2018-08-25 17:03 | Post Operative Note ---
Pre-op diagnosis: anemia Post-op diagnosis: same Findings: EGD: possible Tessy (bx's) - gastritis w/ ulceration/erosion antrum (bx's) - otherwise normal EGD Colonoscopy: fair to poor prep - internal hemorrhoids - otherwise benign Procedure: EGD/colonoscopy Anesthesia: MAC Surgeon: VIK WILKINS Estimated blood loss: none Pathology: list Specimen disposition: to lab Condition: stable Disposition: floor
--- NOTE | 2018-08-25 19:48 | Operative Report ---
PROCEDURE: EGD with cold biopsies. INDICATION: 1. Anemia. 2. GI bleed. MEDICATIONS: Propofol per [facility] GUIDE. COMPLICATIONS: None. DESCRIPTION OF PROCEDURE: The patient was brought to procedure suite. The patient had the procedure discussed with him at length. All risks, complications, and benefits were discussed after which consent was gotten for the procedure to be performed. The patient was placed in left lateral decubitus position. Mouth block was placed in the patient's oral cavity. After adequate sedation and medication as above, endoscope was introduced into the mouth and brought to the level of the second portion of duodenum. Retroflexion view performed. The patient's vital signs remained stable throughout the procedure. FINDINGS: There was spotted white material noted along the length of the esophagus, raising possibility of Tessy. Biopsies were taken and sent to pathology. GE junction noted at 39 cm from the gums. Small hiatal hernia at GE junction. The esophagus otherwise appeared to be normal. There is [id number] antral gastritis with diffuse shallow erosions and ulcerations. These extended into the incisura. Biopsies were taken and sent to pathology. The remaining stomach otherwise appeared to be normal. The duodenum appeared to be normal. Retroflexion view performed in the stomach showed no other pathology other than noted above. The patient tolerated the procedure well. No complications during the procedure. IMPRESSION: 1. Hiatal hernia. 2. Possible Tessy with biopsies performed. 3. Gastritis with ulcerations, biopsies performed. 4. Otherwise normal EGD. RECOMMENDATIONS: 1. Follow up biopsy results. 2. If H. pylori positive, we will treat. 3. PPI daily. 4. Colonoscopy, follow further recommendation based on colonoscopy results.. JOB# [id number] [facility]
--- NOTE | 2018-08-25 20:19 | Progress Note ---
Assessment and Plan Assessment and plan: 68-year-old man with a history of prostate cancer, autism and abnormal labs at PMDs office Patient had drop in his hemoglobin from 16 to 8. Admitted for further evaluation --Severe anemia; hemoglobin levels trending up 10.5 today No evidence of bleeding ,transfuse PRBC as needed --Possible GI bleeding; IV Protonix, nothing by mouth status, GI evaluation noted Scheduled for EGD and colonoscopy today --History of prostate cancer; supportive care Consult urology if needed --Thrombocytopenia; closely monitor Consult hematology if needed --History of autism; supportive care --Urinary tract infection; as per urine analysis Received 1 dose of Rocephin in ED empirically Urine cultures negative , UTI ruled out --DVT prophylaxis; SCD No pharmacologic anticoagulation in view of GI bleeding Disposition ;Follow EGD colonoscopy, if negative and patient is stable May be discharged tomorrow Plan of care is reviewed with the patient and his nurse History Interval history: Patient seen and examined medical records reviewed No new events reported by the nursing Schedule for EGD and colonoscopy today No evidence of bleeding Vital signs reviewed Hospitalist Physical - Constitutional Vitals: Temp Pulse Resp BP Pulse Ox 97.6 F 74 17 135/73 97 08/25/18 17:02 08/25/18 17:32 08/25/18 17:32 08/25/18 17:32 08/25/18 17:32 General appearance: Present: no acute distress, well-nourished - EENT Eyes: Present: PERRL, EOM intact - Neck Neck: Present: supple, normal ROM - Respiratory Respiratory effort: normal Respiratory: negative: rales, rhonchi, wheezing - Cardiovascular Rhythm: regular Heart Sounds: Present: S1 & S2 - Extremities Extremities: no ischemia, No edema - Abdominal General gastrointestinal: soft, non-tender, non-distended, normal bowel sounds - Integumentary Integumentary: Present: clear, warm - Psychiatric Psychiatric: appropriate mood/affect, cooperative - Neurologic Neurologic: other ( autistic) Results - Labs CBC & Chem 7: 08/25/18 05:23 08/25/18 05:23 Labs: Laboratory Last Values WBC 8.2 K/mm3 (4.5-11.0) 08/25/18 05:23 RBC 2.99 M/mm3 (3.65-5.03) L 08/25/18 05:23 Hgb 10.5 gm/dl (11.8-15.2) L 08/25/18 05:23 Hct 31.7 % (35.5-45.6) L 08/25/18 05:23 MCV 106 fl (84-94) H 08/25/18 05:23 MCH 35 pg (28-32) H 08/25/18 05:23 MCHC 33 % (32-34) 08/25/18 05:23 RDW 14.0 % (13.2-15.2) 08/25/18 05:23 Plt Count 306 K/mm3 (140-440) 08/25/18 05:23 Lymph % (Auto) 28.1 % (13.4-35.0) 08/25/18 05:23 [place] % (Auto) 10.0 % (0.0-7.3) H 08/25/18 05:23 Eos % (Auto) 1.3 % (0.0-4.3) 08/25/18 05:23 Baso % (Auto) 0.6 % (0.0-1.8) 08/25/18 05:23 Lymph # 2.3 K/mm3 (1.2-5.4) 08/25/18 05:23 [place] # 0.8 K/mm3 (0.0-0.8) 08/25/18 05:23 Eos # 0.1 K/mm3 (0.0-0.4) 08/25/18 05:23 Baso # 0.0 K/mm3 (0.0-0.1) 08/25/18 05:23 Seg Neutrophils % 60.0 % (40.0-70.0) 08/25/18 05:23 Seg Neutrophils # 4.9 K/mm3 (1.8-7.7) 08/25/18 05:23 PT 14.2 Sec. (12.2-14.9) 08/22/18 16:32 INR 1.05 (0.87-1.13) 08/22/18 16:32 APTT 26.9 Sec. (24.2-36.6) 08/22/18 16:32 Sodium 144 mmol/L (137-145) 08/25/18 05:23 Potassium 3.5 mmol/L (3.6-5.0) L 08/25/18 05:23 Chloride 104.2 mmol/L (98-107) 08/25/18 05:23 Carbon Dioxide 24 mmol/L (22-30) 08/25/18 05:23 Anion Gap 19 mmol/L 08/25/18 05:23 BUN 13 mg/dL (9-20) 08/25/18 05:23 Creatinine 1.4 mg/dL (0.8-1.5) 08/25/18 05:23 Estimated GFR > 60 ml/min 08/25/18 05:23 BUN/Creatinine Ratio 9 % 08/25/18 05:23 Glucose 103 mg/dL (75-100) H 08/25/18 05:23 Calcium 8.9 mg/dL (8.4-10.2) 08/25/18 05:23 Magnesium 2.30 mg/dL (1.7-2.3) 08/24/18 04:15 Iron 48 ug/dL (49-181) L 08/23/18 11:12 TIBC 171 mcg/dL (250-450) L 08/23/18 11:12 Ferritin 648.3 ng/mL (13.0-400.0) H 08/23/18 11:12 Total Bilirubin 0.30 mg/dL (0.1-1.2) 08/24/18 04:15 AST 34 units/L (5-40) 08/24/18 04:15 ALT 28 units/L (7-56) 08/24/18 04:15 Alkaline Phosphatase 76 units/L (35-129) 08/24/18 04:15 Total Protein 6.9 g/dL (6.3-8.2) 08/24/18 04:15 Albumin 3.7 g/dL (3.9-5) L 08/24/18 04:15 Albumin/Globulin Ratio 1.2 % 08/24/18 04:15 Vitamin B12 712.8 pg/mL (211-911) 08/23/18 11:12 Urine Color Yellow (Yellow) 08/22/18 17:04 Urine Turbidity Cloudy (Clear) 08/22/18 17:04 Urine pH 5.0 (5.0-7.0) 08/22/18 17:04 Ur Specific [place] 1.011 (1.003-1.030) 08/22/18 17:04 Urine Protein 100 mg/dl mg/dL (Negative) 08/22/18 17:04 Urine Glucose (UA) 50 mg/dL (Negative) 08/22/18 17:04 Urine Ketones Neg mg/dL (Negative) 08/22/18 17:04 Urine Blood Mod (Negative) 08/22/18 17:04 Urine Nitrite Neg (Negative) 08/22/18 17:04 Urine Bilirubin Neg (Negative) 08/22/18 17:04 Urine Urobilinogen < 2.0 mg/dL (<2.0) 08/22/18 17:04 Ur Leukocyte Esterase Lg (Negative) 08/22/18 17:04 Urine WBC (Auto) > 182.0 /HPF (0.0-6.0) H 08/22/18 17:04 Urine RBC (Auto) 39.0 /HPF (0.0-6.0) 08/22/18 17:04 U Epithel Cells (Auto) < 1.0 /HPF (0-13.0) 08/22/18 17:04 Urine Yeast (Budding) 1+ /HPF 08/22/18 17:04 Blood Type O POSITIVE 08/22/18 16:34 Antibody Screen Negative 08/22/18 16:34
[2018-08-25] MEDS: PROTONIX IV SCH (20:25)
--- NOTE | 2018-08-25 21:00 | Operative Report ---
PROCEDURE: Colonoscopy. INDICATION: 1. Anemia. 2. GI bleed. MEDICATIONS: Propofol per [employer] SUPER[employer]OR. COMPLICATIONS: None. DESCRIPTION OF PROCEDURE: The patient was brought to the procedure suite. The patient had the procedure discussed with him and his family at length. All risks, complications, and benefits were discussed after which consent was gotten for the procedure to be performed. The patient was placed in left lateral decubitus position. Rectal exam was performed prior to insertion of the scope. After adequate sedation medication as above, scope was inserted into the rectum and brought to the level of cecum. Ileocecal valve, appendiceal orifice, and cecal strap were adequately visualized. Colonoscope was then removed and mucosa of colon visualized. Prep quality for this procedure was fair. The patient's vital signs remained stable throughout the procedure. FINDINGS: There were no mass lesions, polyps, or significant diverticulosis noted during this procedure. This is a fair to poor prep and so cannot rule out small lesions. Retroflexion view performed in the rectum showed small to medium internal hemorrhoids. The patient tolerated the procedure well. No complications during the procedure. IMPRESSION: 1. Internal hemorrhoids. 2. Fair to poor prep, so cannot rule out small lesions. 3. Otherwise, normal colonoscopy. RECOMMENDATIONS: 1. Follow hematocrit and transfuse as needed. 2. Advance diet. 3. Consider PillCam as an outpatient. 4. Okay to discharge from GI standpoint, we will follow up as an outpatient. We will sign off, call if needed. JOB# [id number] CAB/NTS
[2018-08-26 07:34] LABS: Basophils % (Auto) 0.6 % (0.0-1.8); Eosinophils # (Auto) 0.1 K/mm3 (0.0-0.4); Eosinophils % (Auto) 1.2 % (0.0-4.3); Hemoglobin 9.4 gm/dl (11.8-15.2); Lymphocytes # (Auto) 0.7 K/mm3 (1.2-5.4); Lymphocytes % (Auto) 14.2 % (13.4-35.0); Mean Corpuscular HGB Conc 34 % (32-34); Mean Corpuscular Hemoglobin 35 pg (28-32); Mean Corpuscular Volume 106 fl (84-94); Monocytes # (Auto) 0.6 K/mm3 (0.0-0.8); Monocytes % (Auto) 11.2 % (0.0-7.3); Platelet Count 258 K/mm3 (140-440); Red Blood Count 2.65 M/mm3 (3.65-5.03); Red Cell Distribution Width 13.6 % (13.2-15.2)
[2018-08-26 07:56] LABS: BUN/Creatinine Ratio 12; Blood Urea Nitrogen 14 mg/dL (9-20); Calcium 8.6 mg/dL (8.4-10.2); Hemolysis Index 10
[2018-08-26] MEDS ORDERED: PROTONIX PO SCH (10:00)
[2018-08-26] MEDS: SODIUM CHLORIDE FLUSH SYRINGE 10 ML IV SCH (13:04)
--- NOTE | 2018-08-26 14:35 | Discharge Summary ---
Providers - Providers Date of Admission: 08/22/18 23:05 Date of discharge: 08/26/18 Attending physician: VADIM CORNEJO 08/22/18 21:49 Consult to Physician [CONS] Routine Comment: Consulting Provider: MICHELLE JOYNER Physician Instructions: Reason For Exam: Concern for GI bleed, drop in hemoglobin Primary care physician: [employer] REPAIRER Hospitalization Condition: Fair Hospital course: Discharge diagnosis; 68-year-old man with a history of prostate cancer, autism and abnormal labs at PMDs office Patient had drop in his hemoglobin from 16 to 8. Admitted for further evaluation --Severe anemia; hemoglobin levels trending up 10.5 today No evidence of bleeding ,transfuse PRBC as needed --Possible GI bleeding; IV Protonix, nothing by mouth status, GI evaluation noted s/p EGD and colonoscopy on 07/26/18 --History of prostate cancer; supportive care Consult urology if needed --Thrombocytopenia; closely monitor Consult hematology if needed --History of autism; supportive care --Urinary tract infection; as per urine analysis Received 1 dose of Rocephin in ED empirically Urine cultures negative , UTI ruled out --DVT prophylaxis; SCD No pharmacologic anticoagulation in view of GI bleeding Disposition; negative EGD colonoscopy, discharged today with outpt capsule endoscopy Disposition: TO HOME OR SELFCARE Time spent for discharge: 34 minutes Core Measure Documentation - Palliative Care Palliative Care/ Comfort Measures: Not Applicable - Core Measures Any of the following diagnoses?: none Exam - Constitutional Vitals: Temp Pulse Resp BP Pulse Ox 98.0 F 66 20 154/89 100 08/26/18 12:23 08/26/18 12:23 08/26/18 12:23 08/26/18 12:23 08/26/18 12:23 General appearance: Present: no acute distress, well-nourished - EENT Eyes: Present: PERRL ENT: hearing intact, clear oral mucosa - Neck Neck: Present: supple, normal ROM - Respiratory Respiratory effort: normal Respiratory: bilateral: CTA - Cardiovascular Heart Sounds: Present: S1 & S2. Absent: rub, click - Extremities Extremities: pulses symmetrical, No edema Peripheral Pulses: within normal limits - Abdominal General gastrointestinal: Present: soft, non-tender, non-distended, normal bowel sounds - Integumentary Integumentary: Present: clear, warm, dry - Musculoskeletal Musculoskeletal: gait normal, strength equal bilaterally - Psychiatric Psychiatric: appropriate mood/affect, intact judgment & insight - Neurologic Neurologic: CNII-XII intact, moves all extremities Plan Activity: advance as tolerated Weight Bearing Status: Weight Bear as Tolerated Diet: regular Follow up with: PRIMARY CARE,MD [Primary Care Provider] - 3-5 Days Prescriptions: Pantoprazole [Protonix TAB] 40 mg PO DAILY #30 tablet
[2018-08-26 17:26] VITALS: BP 146/76
== END 2018-08-26 19:00 | disposition home or self-care (01) | DRG 378 ==
LOC: ED 13:22 → 4A 23:05
PROVIDERS: ADMIT Internal Medicine; ATTEND Internal Medicine
PROC: 0DB58ZX Excision of Esophagus, Via Natural or Artificial Opening Endoscopic, Diagnostic (ICD-10-PCS; principal; 2018-08-25)
PROC: 0DB78ZX Excision of Stomach, Pylorus, Via Natural or Artificial Opening Endoscopic, Diagnostic (ICD-10-PCS; 2018-08-25)
PROC: 0DJD8ZZ Inspection of Lower Intestinal Tract, Via Natural or Artificial Opening Endoscopic (ICD-10-PCS; 2018-08-25)
DX: K29.01 Acute gastritis with bleeding (principal); F84.0 Autistic disorder; K64.8 Other hemorrhoids; D69.6 Thrombocytopenia, unspecified; D64.9 Anemia, unspecified; K44.9 Diaphragmatic hernia without obstruction or gangrene; Z85.46 Personal history of malignant neoplasm of prostate
CPT/HCPCS: 36415; 74177; 80048; 80053; 81001; 82607; 82728; 83550; 83735; 85014; 85018; 85025; 85027; 85610; 85730; 86850; 86900; 86901; 87086; 88305; 88312; 88342; 94760; 96365; C9113; J0696; J2001; J2250; J2704; J7030; Q9967

== ENCOUNTER 2022-06-07 10:16 | Outpatient (CLI) | payer MEDICARE ==
--- NOTE | 2022-06-07 15:00 | Cat Scan Report ---
CT ABDOMEN AND PELVIS WITHOUT CONTRAST HISTORY: R31.0 GROSS HEMATURIA COMPARISON: 08/02/2018 TECHNIQUE: Axial CT images were obtained through the abdomen and pelvis without IV contrast. Sagittal and coronal reformatted images. All CT scans at this location are performed using CT dose reduction for ALARA by means of automated exposure control. FINDINGS: CT ABDOMEN: Lung Bases: The visualized lung bases are clear. Stable mild cardiomegaly. Liver: No significant abnormality. Biliary: No significant abnormality. Spleen: No significant abnormality. Unenlarged. Pancreas: No significant abnormality. Adrenals: No significant abnormality. Kidneys: 8.1 cm cyst at the superior pole the right kidney is unchanged. The kidneys and ureters are otherwise unremarkable. No evidence for nephrolithiasis or obvious mass. No hydronephrosis. Lymphatics: No lymphadenopathy. Vasculature: No significant abnormality. Bowel/Peritoneum: No significant abnormality. No free air. No free fluid. Normal appendix. CT PELVIS: : There is severe diffuse bladder wall thickening concerning for cystitis. No pedunculated mass or filling defect is identified. The prostate gland is normal size. Osseous Structures: Stable thoracolumbar spondylosis. Additional Findings: None IMPRESSION: Diffuse bladder wall thickening concerning for cystitis. No discrete mass or filling defect. 8.1 cm right renal cyst. No evidence for nephrolithiasis or hydronephrosis. Signer Name: Russell Robles Jr, MD Signed: 06/07/2022 2:55 PM Workstation Name: [id number]
== END 2022-06-07 10:17 | disposition home or self-care (01) ==
LOC: CT 10:16
PROVIDERS: ATTEND Urology
DX: N28.1 Cyst of kidney, acquired (principal); N32.89 Other specified disorders of bladder; I51.7 Cardiomegaly; R31.0 Gross hematuria
CPT/HCPCS: 74176

== ENCOUNTER 2022-06-18 05:57 | Inpatient (IN) | payer MEDICARE ==
[2022-06-14 10:59] LABS: Hematocrit 36.2 % (35.5-45.6); Hemoglobin 12.6 gm/dl (11.8-15.2); Mean Corpuscular HGB Conc 35 % (32-34); Mean Corpuscular Volume 98 fl (84-94); Platelet Count 170 K/mm3 (140-440); Red Blood Count 3.69 M/mm3 (3.65-5.03); Red Cell Distribution Width 12.3 % (13.2-15.2)
[2022-06-14 11:19] LABS: Alanine Aminotransferase 21 units/L (7-56); Albumin 3.9 g/dL (3.9-5); BUN/Creatinine Ratio 13; Blood Urea Nitrogen 14 mg/dL (9-20); Calcium 8.8 mg/dL (8.4-10.2); Hemolysis Index 4
[2022-06-18] MEDS ORDERED: BACTERIOSTATIC SODIUM CHLORIDE 0.9% 30 ML VIAL INFILTRATI ONE (06:29)
[2022-06-18] MEDS ORDERED: LACTATED RINGERS 1,000 ML IV SCH (06:30)
[2022-06-18] MEDS ORDERED: fentaNYL 100 MCG/2 ML INJ ONE (07:14)
[2022-06-18] MEDS ORDERED: LIDOCAINE MPF (2%) 20 MG/1 ML VIAL 5 ML ONE (07:14)
[2022-06-18] MEDS ORDERED: propofoL 200 MG/20 ML VIAL IV ONE (07:14)
[2022-06-18] MEDS ORDERED: ceFAZolin/STERILE WATER 2 GM/20 ML SYRINGE IV NR (07:30)
--- NOTE | 2022-06-18 07:34 | Anesthesia Consultation ---
Anesthesia Consult and Med Hx Date of service: 06/18/22 - Airway Anesthetic Teeth Evaluation: Good ROM Head & Neck: Adequate Mental/Hyoid Distance: Adequate Mallampati Class: Class II Intubation Access Assessment: Good - Pulmonary Exam CTA: Yes - Cardiac Exam Cardiac Exam: RRR - Pre-Operative Health Status ASA Pre-Surgery Classification: ASA2 Proposed Anesthetic Plan: General - Pulmonary Hx Smoking: Yes (STOPPED) Hx Sleep Apnea: No (TAMEKA PRE SCREEN HIGH RISK) - Cardiovascular System Hx Hypertension: Yes - Central Nervous System Hx Seizures: Yes Hx Psychiatric Problems: Yes (AUTISM) - Hematic Hx Anemia: Yes Hx Sickle Cell Disease: No - Other Systems Hx Alcohol Use: No Hx Substance Use: No Hx Cancer: Yes
--- NOTE | 2022-06-18 07:34 | Anesthesia Day of Surgery ---
Anesthesia Day of Surgery - Day of Surgery Patient Examined: Yes Patient H&P Reviewed: Yes Patient is NPO: Yes
[2022-06-18] MEDS ORDERED: ceFAZolin/Water 2 GM/20 ML 2 GM/20 ML SYRINGE IV ONE (07:44)
[2022-06-18] MEDS ORDERED: MIDAZOLAM 2 MG/2 ML INJ IV NR (08:00)
[2022-06-18] MEDS ORDERED: METHYLENE BLUE 50 MG/10 ML AMP ONE (08:39)
[2022-06-18] MEDS ORDERED: ePHEDrine SULFATE 50 MG/1 ML INJ ONE (08:45)
[2022-06-18] MEDS ORDERED: METHYLENE BLUE 50 MG/10 ML AMP IV ONE (09:00)
[2022-06-18] MEDS ORDERED: MANNITOL/SORBITOL SOLUTION 3,000 ML IRRIG.SOLN IR ONE (09:00)
[2022-06-18] MEDS ORDERED: WATER FOR IRRIG STERILE 2000 ML IR ONE (09:00)
[2022-06-18] MEDS ORDERED: ATROPINE 0.4 MG/1 ML INJ ONE (09:08)
[2022-06-18] MEDS ORDERED: dexAMETHasone 20 MG/5 ML VIAL ONE (09:09)
[2022-06-18] MEDS ORDERED: ONDANSETRON 4 MG/2 ML INJ ONE (09:09)
[2022-06-18] MEDS ORDERED: SODIUM CHLORIDE 0.9% IRRIG SOLN 3000 ML IR ONE (09:30)
--- NOTE | 2022-06-18 09:55 | Post Operative Note ---
Pre-op diagnosis: heme +fish Post-op diagnosis: same Findings: multifocal lesions Procedure: cysto turbts Anesthesia: GETA Surgeon: NIRAV LOPZE Estimated blood loss: minimal Pathology: list (bladder) Specimen disposition: to lab Condition: stable Disposition: PACU
--- NOTE | 2022-06-18 09:57 | Discharge Summary ---
Short Stay Discharge Plan Activity: other (no strsining ) Weight Bearing Status: Partial Weight Bearing Diet: low fat, low cholesterol, low salt Special Instructions: other (in fluids ) Durable Medical Equipment Needed Upon Discharge: other (home with amanda ) Follow up with: GENA ESPINOZA MD [Primary Care Provider] - 7 Days NIRAV LOPEZ MD [Staff Physician] - 7 Days
[2022-06-18] MEDS: HYDROmorphone 0.5 MG/0.5 ML INJ IV PRN ×2 (10:08→11:10)
[2022-06-18] MEDS ORDERED: HYDROmorphone 0.5 MG/0.5 ML INJ IV PRN (10:30)
[2022-06-18] MEDS ORDERED: ONDANSETRON 4 MG/2 ML INJ IV PRN ×2 (10:30→15:49)
--- NOTE | 2022-06-18 10:35 | Operative Report ---
DATE OF SURGERY: 06/18/2022 PREOPERATIVE DIAGNOSES: Positive cytology for gross hematuria, previous radiation for prostate cancer. POSTOPERATIVE DIAGNOSES: Positive cytology for gross hematuria, previous radiation for prostate cancer. Evidence of multifocal flat and solid bladder cancer with a lateral deviations of the orifices and a mild membranous stricture. PROCEDURES: Urethral dilatation cystourethroscopy with a recent biopsies and resection of bladder tumors. SURGEON: Rafael Camacho MD ANESTHESIA: General. FINDINGS: This is a gentleman with gross hematuria, history of previous radiation. CT scan showed a thickened bladder. He now presents for cystoscopy. DESCRIPTION OF PROCEDURE: The patient was brought to the operating room, placed on the operating table. Following induction of anesthesia, placed in lithotomy position, prepped and draped in usual sterile fashion. Cystourethroscopy showed a little bit of a narrowed bulbomembranous junction, which was easily bypassed after dilated with a wire. This was done atraumatically. The bladder was entered and right above the supratrigonal area, there was a necrotic area. There was another area to the left posterior wall and to the right lateral wall. Three biopsies were taken. The area was resected. We were sure to get deeper biopsies as well. The patient tolerated the procedure well. A biopsy of the prostatic urethra was obtained. We initially were going to try to do a retrogrades, but there was a lot of necrosis and there was significant lateral deviation of the ureters. We gave him blue and orifices were well away from the area of resection. The patient tolerated the procedure well. A 20-Syriac 3-way was inserted. The bladder neck was quite elevated. Brought to recovery room in stable condition. Minimal blood loss. TID: [id number] RECEIPT: [id number] HAYLEY/BISMARK
[2022-06-18] MEDS ORDERED: SODIUM CHLORIDE IRRI 1000 ML 1,000 ML IR ONE ×2 (11:56→14:20)
[2022-06-18] MEDS: hydrALAZINE 20 MG/1 ML INJ IV PRN ×2 (11:59→12:30)
[2022-06-18] MEDS ORDERED: ACETAMINOPHEN 325 MG TAB PO PRN ×2 (14:57→15:49)
[2022-06-18] MEDS ORDERED: oxyCODONE /ACETAMINOPHEN 5-325MG TAB PO PRN (14:57)
[2022-06-18] MEDS ORDERED: ZOLPIDEM 5 MG TAB PO PRN (14:57)
--- NOTE | 2022-06-18 15:04 | Progress Note ---
Assessment and Plan WAS PERFECTLY CLEAR UNTIL D/C BLOODY IRRIGATED CLEAR SUSPECT EXTENSIVE tcC ADMIT Subjective Date of service: 06/18/22 Principal diagnosis: HEMATURIA Objective - Constitutional Vitals: Vital Signs - 12hr 06/18/22 06/18/22 06/18/22 06:50 09:40 09:45 Temperature 98.3 F 97.8 F Pulse Rate 54 L 62 63 Respiratory 20 12 12 Rate Blood Pressure 163/93 130/71 135/75 O2 Sat by Pulse 99 99 100 Oximetry 06/18/22 06/18/22 06/18/22 09:50 09:55 10:10 Temperature Pulse Rate 64 65 65 Respiratory 14 14 20 Rate Blood Pressure 162/95 165/99 176/91 O2 Sat by Pulse 100 100 100 Oximetry 06/18/22 06/18/22 06/18/22 10:25 10:40 10:55 Temperature 97.4 F L Pulse Rate 55 L 49 L 51 L Respiratory 14 12 12 Rate Blood Pressure 175/92 160/90 161/93 O2 Sat by Pulse 95 95 96 Oximetry 06/18/22 06/18/22 06/18/22 11:00 11:15 11:25 Temperature Pulse Rate 52 L 60 52 L Respiratory 14 12 12 Rate Blood Pressure 180/100 170/91 182/94 O2 Sat by Pulse 97 95 95 Oximetry 06/18/22 06/18/22 06/18/22 11:40 11:55 11:59 Temperature 97.1 F L Pulse Rate 53 L 46 L 46 L Respiratory 12 12 Rate Blood Pressure 160/94 187/93 187/93 O2 Sat by Pulse 97 97 Oximetry 06/18/22 06/18/22 06/18/22 12:10 12:25 12:30 Temperature Pulse Rate 50 L 58 L 46 L Respiratory 16 17 Rate Blood Pressure 167/91 169/97 182/91 O2 Sat by Pulse 97 97 Oximetry 06/18/22 06/18/22 06/18/22 12:40 12:55 13:10 Temperature 97.0 F L 97.0 F L Pulse Rate 55 L 56 L 62 Respiratory 15 14 14 Rate Blood Pressure 160/86 162/82 160/82 O2 Sat by Pulse 98 98 97 Oximetry 06/18/22 14:50 Temperature 97.0 F L Pulse Rate 57 L Respiratory 12 Rate Blood Pressure 153/82 O2 Sat by Pulse 98 Oximetry - Labs CBC & Chem 7: 07/21/22 00:01 06/14/22 00:01 Medications & Allergies - Medications Allergies/Adverse Reactions: Allergies No Known Allergies Allergy (Unverified 08/19/18 08:50) Home Medications: Home Medications Medication Instructions Recorded Confirmed Last Taken Type Benadryl 50 mg PO HS 06/08/22 06/08/22 06/17/22 History Mv-Mn/Folic/Q10/Lycopen/Lutein 1 cap PO DAILY 06/08/22 06/08/22 06/17/22 History [One-Daily Multi Caps] OLANZapine [Zyprexa] 20 mg PO HS 06/08/22 06/08/22 06/17/22 History PARoxetine [Paxil] 20 mg PO HS 06/08/22 06/08/22 06/17/22 History Pravastatin [Pravachol] 20 mg PO QHS 06/08/22 06/08/22 06/17/22 History Stool Softener 1 cap PO DAILY 06/08/22 06/08/22 06/17/22 History carBAMazepine [Carbamazepine] 100 mg PO DAILY 06/08/22 06/08/22 06/18/22 04:45 History cloZAPine [Clozaril] 200 mg PO HS 06/08/22 06/08/22 06/17/22 History propranoloL [Inderal] 40 mg PO BID 06/08/22 06/08/22 06/18/22 04:45 History Active Medications: Generic Name Dose Route Start Last Admin Trade Name Freq PRN Reason Stop Dose Admin Acetaminophen 650 mg 06/18/22 14:57 Acetaminophen 325 Mg Tab PO Q4H PRN Pain, Mild (1-3)/Fever > 100.5 Cefazolin Sodium 2 gm 06/18/22 07:30 Cefazolin/Sterile Water 2 Gm/20 Ml Syringe IV 06/18/22 17:00 PREOP NR Docusate Sodium 100 mg 06/18/22 22:00 Docusate Sodium 100 Mg Cap PO BID LESLIE Hydromorphone HCl 0.25 mg 06/18/22 10:30 06/18/22 11:10 Hydromorphone 0.5 Mg/0.5 Ml Inj IV 06/18/22 17:00 0.25 mg Q10MIN PRN Administration Pain, Moderate (4-6) Hydromorphone HCl 0.5 mg 06/18/22 10:30 Hydromorphone 0.5 Mg/0.5 Ml Inj IV 06/18/22 17:00 Q10MIN PRN Pain , Severe (7-10) Lactated Ringer's 1,000 mls @ 100 mls/hr 06/18/22 06:30 06/18/22 07:05 Lactated Ringers IV 100 mls/hr DIRECT ELSLIE Administration Cefazolin Sodium 1 gm in 50 mls @ 100 mls/hr 06/18/22 15:00 Ancef/Ns 1 Gm/50 Ml IV 06/18/22 23:29 Q8H LESLIE Protocol Midazolam HCl 2 mg 06/18/22 08:00 06/18/22 07:48 Midazolam 2 Mg/2 Ml Inj IV 06/18/22 23:59 2 mg PREOP NR Administration Ondansetron HCl 4 mg 06/18/22 10:30 Ondansetron 4 Mg/2 Ml Inj IV 06/18/22 17:00 ONCE PRN Nausea And Vomiting Oxycodone/Acetaminophen 2 tab 06/18/22 14:57 Oxycodone /Acetaminophen 5-325mg Tab PO Q6H PRN Pain, Moderate (4-6) Sodium Chloride 2,000 ml 06/18/22 15:00 Sodium Chloride 0.9% Irrig Soln 2000 Ml IR DIRECT LESLIE Zolpidem Tartrate 5 mg 06/18/22 14:57 Zolpidem 5 Mg Tab PO QHS PRN Sleep
[2022-06-18] MEDS ORDERED: MORPHINE 2 MG/1 ML INJ IV PRN (15:49)
--- NOTE | 2022-06-18 15:53 | XRay Report ---
INTRAOPERATIVE FLUOROSCOPY INDICATION / CLINICAL INFORMATION: PROSTATE CANCER.. TECHNIQUE: Intraoperative spot images were obtained during the procedure. FINDINGS: Intraoperative fluoroscopy images. See operative/procedure note by performing physician for full details. Fluoroscopy Time: 1 min. Fluoroscopy Images: 1. Signer Name: Kingsley Quiroga MD Signed: 06/18/2022 3:48 PM Workstation Name: [id number]
[2022-06-18] MEDS ORDERED: SODIUM CHLORIDE 0.9% 500 ML 500 ML IV SCH (16:06)
[2022-06-18 16:11] LABS: Hemoglobin 13.2 gm/dl (11.8-15.2)
[2022-06-18] MEDS: ceFAZolin/NS 1 GM/50 ML 1 GM/50 ML BAG IV SCH ×2 (16:13→23:19)
[2022-06-18] MEDS ORDERED: STOOL SOFTENER PO SCH (16:15)
[2022-06-18] MEDS ORDERED: WATER FOR IRRIG STERILE 1,000 ML BOTTLE ONE (16:34)
--- NOTE | 2022-06-18 16:42 | Progress Note ---
Assessment and Plan irrigated no clotsd crystal clear occ susprected spasm gets bloody or was ready to go back hgb 12.6 no pain now clear again no clots will watch suspcect diffuse high grade tcc Subjective Date of service: 06/18/22 Principal diagnosis: HEMATURIA Objective - Constitutional Vitals: Vital Signs - 12hr 06/18/22 06/18/22 06/18/22 06:50 09:40 09:45 Temperature 98.3 F 97.8 F Pulse Rate 54 L 62 63 Respiratory 20 12 12 Rate Blood Pressure 163/93 130/71 135/75 O2 Sat by Pulse 99 99 100 Oximetry 06/18/22 06/18/22 06/18/22 09:50 09:55 10:10 Temperature Pulse Rate 64 65 65 Respiratory 14 14 20 Rate Blood Pressure 162/95 165/99 176/91 O2 Sat by Pulse 100 100 100 Oximetry 06/18/22 06/18/22 06/18/22 10:25 10:40 10:55 Temperature 97.4 F L Pulse Rate 55 L 49 L 51 L Respiratory 14 12 12 Rate Blood Pressure 175/92 160/90 161/93 O2 Sat by Pulse 95 95 96 Oximetry 06/18/22 06/18/22 06/18/22 11:00 11:15 11:25 Temperature Pulse Rate 52 L 60 52 L Respiratory 14 12 12 Rate Blood Pressure 180/100 170/91 182/94 O2 Sat by Pulse 97 95 95 Oximetry 06/18/22 06/18/22 06/18/22 11:40 11:55 11:59 Temperature 97.1 F L Pulse Rate 53 L 46 L 46 L Respiratory 12 12 Rate Blood Pressure 160/94 187/93 187/93 O2 Sat by Pulse 97 97 Oximetry 06/18/22 06/18/22 06/18/22 12:10 12:25 12:30 Temperature Pulse Rate 50 L 58 L 46 L Respiratory 16 17 Rate Blood Pressure 167/91 169/97 182/91 O2 Sat by Pulse 97 97 Oximetry 06/18/22 06/18/22 06/18/22 12:40 12:55 13:10 Temperature 97.0 F L 97.0 F L Pulse Rate 55 L 56 L 62 Respiratory 15 14 14 Rate Blood Pressure 160/86 162/82 160/82 O2 Sat by Pulse 98 98 97 Oximetry 06/18/22 14:50 Temperature 97.0 F L Pulse Rate 57 L Respiratory 12 Rate Blood Pressure 153/82 O2 Sat by Pulse 98 Oximetry - Labs CBC & Chem 7: 06/18/22 16:07 06/14/22 00:01 Medications & Allergies - Medications Allergies/Adverse Reactions: Allergies No Known Allergies Allergy (Unverified 08/19/18 08:50) Home Medications: Home Medications Medication Instructions Recorded Confirmed Last Taken Type Benadryl 50 mg PO HS 06/08/22 06/08/22 06/17/22 History Mv-Mn/Folic/Q10/Lycopen/Lutein 1 cap PO DAILY 06/08/22 06/08/22 06/17/22 History [One-Daily Multi Caps] OLANZapine [Zyprexa] 20 mg PO HS 06/08/22 06/08/22 06/17/22 History PARoxetine [Paxil] 20 mg PO HS 06/08/22 06/08/22 06/17/22 History Pravastatin [Pravachol] 20 mg PO QHS 06/08/22 06/08/22 06/17/22 History Stool Softener 1 cap PO DAILY 06/08/22 06/08/22 06/17/22 History carBAMazepine [Carbamazepine] 100 mg PO DAILY 06/08/22 06/08/22 06/18/22 04:45 History cloZAPine [Clozaril] 200 mg PO HS 06/08/22 06/08/22 06/17/22 History propranoloL [Inderal] 40 mg PO BID 06/08/22 06/08/22 06/18/22 04:45 History Active Medications: Generic Name Dose Route Start Last Admin Trade Name Frannie PRN Reason Stop Dose Admin Acetaminophen 650 mg 06/18/22 15:49 Acetaminophen 325 Mg Tab PO Q4H PRN Pain MILD(1-3)/Fever >100.5/BRICE Carbamazepine 100 mg 06/18/22 18:00 Carbamazepine 200 Mg Tab PO DAILY LESLIE Cefazolin Sodium 2 gm 06/18/22 07:30 Cefazolin/Sterile Water 2 Gm/20 Ml Syringe IV 06/18/22 17:00 PREOP NR Diphenhydramine HCl 50 mg 06/18/22 22:00 Diphenhydramine 25 Mg Cap PO HS [facility] Docusate Sodium 100 mg 06/18/22 22:00 Docusate Sodium 100 Mg Cap PO BID LESLIE Hydromorphone HCl 0.25 mg 06/18/22 10:30 06/18/22 11:10 Hydromorphone 0.5 Mg/0.5 Ml Inj IV 06/18/22 17:00 0.25 mg Q10MIN PRN Administration Pain, Moderate (4-6) Hydromorphone HCl 0.5 mg 06/18/22 10:30 Hydromorphone 0.5 Mg/0.5 Ml Inj IV 06/18/22 17:00 Q10MIN PRN Pain , Severe (7-10) Lactated Ringer's 1,000 mls @ 100 mls/hr 06/18/22 06:30 06/18/22 07:05 Lactated Ringers IV 100 mls/hr DIRECT LESLIE Administration Cefazolin Sodium 1 gm in 50 mls @ 100 mls/hr 06/18/22 16:00 06/18/22 16:13 Ancef/Ns 1 Gm/50 Ml IV 06/19/22 00:29 100 mls/hr Q8H LESLIE Administration Protocol Sodium Chloride 1,000 mls @ 75 mls/hr 06/18/22 16:00 Nacl 0.9% 1000 Ml IV DIRECT LESLIE Sodium Chloride 500 mls @ 0 mls/hr 06/18/22 16:06 Nacl 0.9% 500 Ml IV ONCE LESLIE As Directed Midazolam HCl 2 mg 06/18/22 08:00 06/18/22 07:48 Midazolam 2 Mg/2 Ml Inj IV 06/18/22 23:59 2 mg PREOP NR Administration Miscellaneous Medication 200 mg 06/18/22 22:00 Clozapine [Clozaril] PO HS LESLIE Miscellaneous Medication 20 mg 06/18/22 22:00 Olanzapine [Zyprexa] PO HS LESLIE Morphine Sulfate 2 mg 06/18/22 15:49 Morphine 2 Mg/1 Ml Inj IV Q4H PRN Pain, Moderate (4-6) Ondansetron HCl 4 mg 06/18/22 15:49 Ondansetron 4 Mg/2 Ml Inj IV Q8H PRN Nausea And Vomiting Oxycodone/Acetaminophen 2 tab 06/18/22 14:57 Oxycodone /Acetaminophen 5-325mg Tab PO Q6H PRN Pain, Moderate (4-6) Paroxetine HCl 20 mg 06/18/22 22:00 Paroxetine 20 Mg Tab PO HS LESLIE Pravastatin Sodium 20 mg 06/18/22 22:00 Pravastatin 20 Mg Tab PO QHS LESLIE Propranolol HCl 40 mg 06/18/22 18:00 Propranolol 40 Mg Tab PO BID LESLIE Sodium Chloride 2,000 ml 06/18/22 15:00 Sodium Chloride 0.9% Irrig Soln 2000 Ml IR DIRECT LESLIE Sodium Chloride 10 ml 06/18/22 16:00 Sodium Chloride 0.9% 10 Ml Flush Syringe IV BID LESLIE Sodium Chloride 10 ml 06/18/22 15:49 Sodium Chloride 0.9% 10 Ml Flush Syringe IV PRN PRN LINE FLUSH Zolpidem Tartrate 5 mg 06/18/22 14:57 Zolpidem 5 Mg Tab PO QHS PRN Sleep
[2022-06-18] MEDS ORDERED: OXYBUTYNIN 5 MG TAB PO ONE (16:45)
--- NOTE | 2022-06-18 17:06 | Post Anesthesia Evaluation ---
- Post Anesthesia Evaluation Patient Participated: Yes Airway Patent: Yes Stable Respiratory Function: Yes Nausea/Vomiting: No Temp > 96.8F: Yes Pain Manageable: Yes Adequeate Hydration: Yes Anesthesia Complications: No Block Receding Appropriately: Not Applicable Patient on Ventilator: No
[2022-06-18] MEDS: PROPRANOLOL 40 MG TAB PO SCH ×2 (19:10→23:26)
[2022-06-18] MEDS: carBAMazepine 200 MG TAB PO SCH (19:12)
[2022-06-18] MEDS: SODIUM CHLORIDE 0.9% 1000 ML 1,000 ML IV SCH (20:36)
[2022-06-18] MEDS: SODIUM CHLORIDE 0.9% IRRIG SOLN 2000 ML IR SCH ×5 (21:13→23:46)
[2022-06-18] MEDS ORDERED: CLOZAPINE 200 MG PO SCH (22:00)
[2022-06-18] MEDS ORDERED: NON-FORMULARY EACH (Olanzapine [Zyprexa] 20 MG Tablet) PO SCH (22:00)
[2022-06-18] MEDS: diphenhydrAMINE 25 MG CAP PO SCH (23:08)
[2022-06-18] MEDS: DOCUSATE SODIUM 100 MG CAP PO SCH (23:08)
[2022-06-18] MEDS: PRAVASTATIN 20 MG TAB PO SCH (23:08)
[2022-06-18] MEDS: PARoxetine 20 MG TAB PO SCH (23:15)
[2022-06-19] MEDS: SODIUM CHLORIDE 0.9% IRRIG SOLN 2000 ML IR SCH ×9 (00:44→07:03)
[2022-06-19 05:36] LABS: Basophils % (Auto) 0.2 % (0.0-1.8); Eosinophils % (Auto) 0.3 % (0.0-4.3); Hematocrit 34.5 % (35.5-45.6); Hemoglobin 11.6 gm/dl (11.8-15.2); Lymphocytes # (Auto) 1.8 K/mm3 (1.2-5.4); Lymphocytes % (Auto) 20.3 % (13.4-35.0); Mean Corpuscular HGB Conc 34 % (32-34); Mean Corpuscular Volume 99 fl (84-94); Monocytes # (Auto) 0.9 K/mm3 (0.0-0.8); Platelet Count 161 K/mm3 (140-440); Red Blood Count 3.48 M/mm3 (3.65-5.03); Red Cell Distribution Width 12.6 % (13.2-15.2)
[2022-06-19 05:59] LABS: BUN/Creatinine Ratio 13; Blood Urea Nitrogen 14 mg/dL (9-20); Calcium 8.1 mg/dL (8.4-10.2); Hemolysis Index 4
--- NOTE | 2022-06-19 06:22 | Consultation ---
History of Present Illness - Reason for Consult Consult date: 06/18/22 Medical management Requesting physician: NIRAV LOPEZ - History of Present Illness S/p cystoscopy and persistent hematuria. Possible bladder Cancer. Being admitted for persistent hematuria. no shortness of breath Past History Past Medical History: hypertension, hyperlipidemia, other (Depression) Past Surgical History: Other (Cystoscopy) Social history: lives with family, full code Family history: hypertension Medications and Allergies Allergies Allergy/AdvReac Type Severity Reaction Status Date / Time No Known Allergies Allergy Unverified 08/19/18 08:50 Home Medications Medication Instructions Recorded Confirmed Last Taken Type Benadryl 50 mg PO HS 06/08/22 06/08/22 06/17/22 History Mv-Mn/Folic/Q10/Lycopen/Lutein 1 cap PO DAILY 06/08/22 06/08/22 06/17/22 History [One-Daily Multi Caps] OLANZapine [Zyprexa] 20 mg PO HS 06/08/22 06/08/22 06/17/22 History PARoxetine [Paxil] 20 mg PO HS 06/08/22 06/08/22 06/17/22 History Pravastatin [Pravachol] 20 mg PO QHS 06/08/22 06/08/22 06/17/22 History Stool Softener 1 cap PO DAILY 06/08/22 06/08/22 06/17/22 History carBAMazepine [Carbamazepine] 100 mg PO DAILY 06/08/22 06/08/22 06/18/22 04:45 History cloZAPine [Clozaril] 200 mg PO HS 06/08/22 06/08/22 06/17/22 History propranoloL [Inderal] 40 mg PO BID 06/08/22 06/08/22 06/18/22 04:45 History Active Meds: Active Medications Acetaminophen (Acetaminophen 325 Mg Tab) 650 mg PO Q4H PRN PRN Reason: Pain MILD(1-3)/Fever >100.5/BRICE Carbamazepine (Carbamazepine 200 Mg Tab) 100 mg PO DAILY [facility] Last Admin: 06/18/22 19:12 Dose: 100 mg Diphenhydramine HCl (Diphenhydramine 25 Mg Cap) 50 mg PO [facility] Last Admin: 06/18/22 23:08 Dose: 50 mg Docusate Sodium (Docusate Sodium 100 Mg Cap) 100 mg PO BID [facility] Last Admin: 06/18/22 23:08 Dose: 100 mg Lactated Ringer's (Lactated Ringers) 1,000 mls @ 100 mls/hr IV DIRECT [facility] Last Admin: 06/18/22 07:05 Dose: 100 mls/hr Sodium Chloride (Nacl 0.9% 1000 Ml) 1,000 mls @ 75 mls/hr IV DIRECT [facility] Last Admin: 06/18/22 20:36 Dose: 75 mls/hr Sodium Chloride (Nacl 0.9% 500 Ml) 500 mls @ 0 mls/hr IV ONCE [facility] Miscellaneous Medication (Clozapine [Clozaril]) 200 mg PO HS [facility] Morphine Sulfate (Morphine 2 Mg/1 Ml Inj) 2 mg IV Q4H PRN PRN Reason: Pain, Moderate (4-6) Olanzapine (Olanzapine 10 Mg Tab) 20 mg PO HS [facility] Last Admin: 06/18/22 23:12 Dose: 20 mg Ondansetron HCl (Ondansetron 4 Mg/2 Ml Inj) 4 mg IV Q8H PRN PRN Reason: Nausea And Vomiting Oxycodone/Acetaminophen (Oxycodone /Acetaminophen 5-325mg Tab) 2 tab PO Q6H PRN PRN Reason: Pain, Moderate (4-6) Paroxetine HCl (Paroxetine 20 Mg Tab) 20 mg PO [facility] Last Admin: 06/18/22 23:15 Dose: 20 mg Pravastatin Sodium (Pravastatin 20 Mg Tab) 20 mg PO QHS [facility] Last Admin: 06/18/22 23:08 Dose: 20 mg Propranolol HCl (Propranolol 40 Mg Tab) 40 mg PO BID [facility] Last Admin: 06/18/22 23:26 Dose: 40 mg Sodium Chloride (Sodium Chloride 0.9% Irrig Soln 2000 Ml) 2,000 ml IR DIRECT [facility] Last Admin: 06/19/22 05:51 Dose: 2,000 ml Sodium Chloride (Sodium Chloride 0.9% 10 Ml Flush Syringe) 10 ml IV BID [facility] Last Admin: 06/18/22 23:19 Dose: 10 ml Sodium Chloride (Sodium Chloride 0.9% 10 Ml Flush Syringe) 10 ml IV PRN PRN PRN Reason: LINE FLUSH Zolpidem Tartrate (Zolpidem 5 Mg Tab) 5 mg PO QHS PRN PRN Reason: Sleep Review of Systems All systems: negative Exam - Constitutional Vitals: Temp Pulse Resp BP Pulse Ox 98.8 F 69 18 116/66 99 06/18/22 20:00 06/18/22 20:00 06/18/22 20:00 06/18/22 20:00 06/18/22 20:00 General appearance: Present: no acute distress, well-nourished - EENT Eyes: Present: PERRL ENT: hearing intact, clear oral mucosa - Neck Neck: Present: supple, normal ROM - Respiratory Respiratory effort: normal Respiratory: bilateral: CTA - Cardiovascular Heart rate: 78 Rhythm: regular Heart Sounds: Present: S1 & S2. Absent: rub, click - Extremities Extremities: pulses symmetrical, No edema Peripheral Pulses: within normal limits - Abdominal General gastrointestinal: Present: soft, non-tender, non-distended, normal bowel sounds Male genitourinary: Present: normal - Integumentary Integumentary: Present: clear, warm, dry - Musculoskeletal Musculoskeletal: gait normal, strength equal bilaterally - Psychiatric Psychiatric: appropriate mood/affect, intact judgment & insight - Neurologic Neurologic: CNII-XII intact, moves all extremities Results - Labs CBC & Chem 7: 06/19/22 04:40 06/19/22 04:40 Labs: Abnormal lab results 06/18/22 06/19/22 06/19/22 Range/Units 19:38 04:40 04:40 RBC 3.48 L (3.65-5.03) M/mm3 Hgb 11.6 L (11.8-15.2) gm/dl Hct 34.5 L (35.5-45.6) % MCV 99 H (84-94) fl MCH 33 H (28-32) pg RDW 12.6 L (13.2-15.2) % [place] % (Auto) 10.0 H (0.0-7.3) % [place] # (Auto) 0.9 H (0.0-0.8) K/mm3 Calcium 8.1 L (8.4-10.2) mg/dL Crossmatch See Detail Assessment and Plan - Patient Problems (1) Hematuria Current Visit: Yes Status: Acute Qualifiers: Hematuria type: gross Qualified Code(s): R31.0 - Gross hematuria Plan to address problem: Secondary to bladder cancer Awan drip if necessary IV fluids H&H stable (2) Hypertension Current Visit: Yes Status: Chronic Qualifiers: Hypertension type: primary hypertension Qualified Code(s): I10 - Essential (primary) hypertension Plan to address problem: On propranolol twice daily (3) Hyperlipidemia Current Visit: Yes Status: Chronic Qualifiers: Hyperlipidemia type: mixed hyperlipidemia Qualified Code(s): E78.2 - Mixed hyperlipidemia Plan to address problem: On statins (4) DVT prophylaxis Current Visit: Yes Status: Acute Plan to address problem: SCDs and GI prophylaxis (5) Advance care planning Current Visit: Yes Status: Acute Plan to address problem: Disease education conducted, care plan discussed, prognosis discussed prognosis discussed and patient is understanding care plan of. +30 minutes.
--- NOTE | 2022-06-19 08:46 | Progress Note ---
Assessment and Plan urine clear rec ir consult may need cystectomy path pending prev radiation Subjective Date of service: 06/19/22 Principal diagnosis: HEMATURIA Objective - Constitutional Vitals: Vital Signs - 12hr 06/18/22 06/19/22 22:00 08:20 O2 Sat by Pulse 99 94 Oximetry General appearance: Present: no acute distress - Neck Neck: supple Extremities: no ischemia - Gastrointestinal General gastrointestinal: Present: soft, non-tender - Labs CBC & Chem 7: 06/19/22 04:40 06/19/22 04:40 Labs: Abnormal lab results 06/18/22 06/19/22 06/19/22 Range/Units 19:38 04:40 04:40 RBC 3.48 L (3.65-5.03) M/mm3 Hgb 11.6 L (11.8-15.2) gm/dl Hct 34.5 L (35.5-45.6) % MCV 99 H (84-94) fl MCH 33 H (28-32) pg RDW 12.6 L (13.2-15.2) % Bond % (Auto) 10.0 H (0.0-7.3) % Bond # (Auto) 0.9 H (0.0-0.8) K/mm3 Calcium 8.1 L (8.4-10.2) mg/dL Crossmatch See Detail Medications & Allergies - Medications Allergies/Adverse Reactions: Allergies No Known Allergies Allergy (Unverified 08/19/18 08:50) Home Medications: Home Medications Medication Instructions Recorded Confirmed Last Taken Type Benadryl 50 mg PO HS 06/08/22 06/08/22 06/17/22 History Mv-Mn/Folic/Q10/Lycopen/Lutein 1 cap PO DAILY 06/08/22 06/08/22 06/17/22 History [One-Daily Multi Caps] OLANZapine [Zyprexa] 20 mg PO HS 06/08/22 06/08/22 06/17/22 History PARoxetine [Paxil] 20 mg PO HS 06/08/22 06/08/22 06/17/22 History Pravastatin [Pravachol] 20 mg PO QHS 06/08/22 06/08/22 06/17/22 History Stool Softener 1 cap PO DAILY 06/08/22 06/08/22 06/17/22 History carBAMazepine [Carbamazepine] 100 mg PO DAILY 06/08/22 06/08/22 06/18/22 04:45 History cloZAPine [Clozaril] 200 mg PO HS 06/08/22 06/08/22 06/17/22 History propranoloL [Inderal] 40 mg PO BID 06/08/22 06/08/22 06/18/22 04:45 History Active Medications: Generic Name Dose Route Start Last Admin Trade Name Freq PRN Reason Stop Dose Admin Acetaminophen 650 mg 06/18/22 15:49 Acetaminophen 325 Mg Tab PO Q4H PRN Pain MILD(1-3)/Fever >100.5/BRICE Carbamazepine 100 mg 06/18/22 18:00 06/18/22 19:12 Carbamazepine 200 Mg Tab PO 100 mg DAILY [facility] Administration Diphenhydramine HCl 50 mg 06/18/22 22:00 06/18/22 23:08 Diphenhydramine 25 Mg Cap PO 50 mg HS [facility] Administration Docusate Sodium 100 mg 06/18/22 22:00 06/18/22 23:08 Docusate Sodium 100 Mg Cap PO 100 mg BID [facility] Administration Lactated Ringer's 1,000 mls @ 100 mls/hr 06/18/22 06:30 06/18/22 07:05 Lactated Ringers IV 100 mls/hr DIRECT [facility] Administration Sodium Chloride 1,000 mls @ 75 mls/hr 06/18/22 16:00 06/18/22 20:36 Nacl 0.9% 1000 Ml IV 75 mls/hr DIRECT [facility] Administration Sodium Chloride 500 mls @ 0 mls/hr 06/18/22 16:06 Nacl 0.9% 500 Ml IV 06/19/22 16:05 ONCE [facility] As Directed Miscellaneous Medication 200 mg 06/18/22 22:00 Clozapine [Clozaril] PO HS [facility] Morphine Sulfate 2 mg 06/18/22 15:49 Morphine 2 Mg/1 Ml Inj IV Q4H PRN Pain, Moderate (4-6) Olanzapine 20 mg 06/18/22 22:00 06/18/22 23:12 Olanzapine 10 Mg Tab PO 20 mg HS [facility] Administration Ondansetron HCl 4 mg 06/18/22 15:49 Ondansetron 4 Mg/2 Ml Inj IV Q8H PRN Nausea And Vomiting Oxycodone/Acetaminophen 2 tab 06/18/22 14:57 Oxycodone /Acetaminophen 5-325mg Tab PO Q6H PRN Pain, Moderate (4-6) Paroxetine HCl 20 mg 06/18/22 22:00 06/18/22 23:15 Paroxetine 20 Mg Tab PO 20 mg HS [facility] Administration Pravastatin Sodium 20 mg 06/18/22 22:00 06/18/22 23:08 Pravastatin 20 Mg Tab PO 20 mg QHS [facility] Administration Propranolol HCl 40 mg 06/18/22 18:00 06/18/22 23:26 Propranolol 40 Mg Tab PO 40 mg BID [facility] Administration Sodium Chloride 2,000 ml 06/18/22 15:00 06/19/22 07:03 Sodium Chloride 0.9% Irrig Soln 2000 Ml IR 2,000 ml DIRECT [facility] Administration Sodium Chloride 10 ml 06/18/22 16:00 06/18/22 23:19 Sodium Chloride 0.9% 10 Ml Flush Syringe IV 10 ml BID [facility] Administration Sodium Chloride 10 ml 06/18/22 15:49 Sodium Chloride 0.9% 10 Ml Flush Syringe IV PRN PRN LINE FLUSH Zolpidem Tartrate 5 mg 06/18/22 14:57 Zolpidem 5 Mg Tab PO QHS PRN Sleep
[2022-06-19] MEDS: DOCUSATE SODIUM 100 MG CAP PO SCH ×2 (09:57→22:26)
[2022-06-19] MEDS: carBAMazepine 200 MG TAB PO SCH (09:57)
[2022-06-19] MEDS: SODIUM CHLORIDE 0.9% 1000 ML 1,000 ML IV SCH (09:59)
--- NOTE | 2022-06-19 11:22 | Consultation ---
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 Hemoglobin slightly decreased from 12.6-11.6. May be a component of fluid dilution. Reviewed CT scan from 07/2018 of the abdomen and pelvis with contrast which demonstrates patent infrarenal abdominal aorta and abdominal aorta with iliac artery patency. Contacted about possible cystic artery embolization if recurrent gross hematuria occurs. Past History Past Medical History: hypertension, hyperlipidemia, other (Depression, autism) Past Surgical History: Other (Cystoscopy) Social history: lives with family, full code Family history: hypertension Medications and Allergies Allergies Allergy/AdvReac Type Severity Reaction Status Date / Time No Known Allergies Allergy Unverified 08/19/18 08:50 Home Medications Medication Instructions Recorded Confirmed Last Taken Type Benadryl 50 mg PO HS 06/08/22 06/08/22 06/17/22 History Mv-Mn/Folic/Q10/Lycopen/Lutein 1 cap PO DAILY 06/08/22 06/08/22 06/17/22 History [One-Daily Multi Caps] OLANZapine [Zyprexa] 20 mg PO HS 06/08/22 06/08/22 06/17/22 History PARoxetine [Paxil] 20 mg PO HS 06/08/22 06/08/22 06/17/22 History Pravastatin [Pravachol] 20 mg PO QHS 06/08/22 06/08/22 06/17/22 History Stool Softener 1 cap PO DAILY 06/08/22 06/08/22 06/17/22 History carBAMazepine [Carbamazepine] 100 mg PO DAILY 06/08/22 06/08/22 06/18/22 04:45 History cloZAPine [Clozaril] 200 mg PO HS 06/08/22 06/08/22 06/17/22 History propranoloL [Inderal] 40 mg PO BID 06/08/22 06/08/22 06/18/22 04:45 History Active Meds: Active Medications Acetaminophen (Acetaminophen 325 Mg Tab) 650 mg PO Q4H PRN PRN Reason: Pain MILD(1-3)/Fever >100.5/BRICE Carbamazepine (Carbamazepine 200 Mg Tab) 100 mg PO DAILY [facility] Last Admin: 06/19/22 09:57 Dose: 100 mg Diphenhydramine HCl (Diphenhydramine 25 Mg Cap) 50 mg PO HS [facility] Last Admin: 06/18/22 23:08 Dose: 50 mg Docusate Sodium (Docusate Sodium 100 Mg Cap) 100 mg PO BID [facility] Last Admin: 06/19/22 09:57 Dose: 100 mg Sodium Chloride (Nacl 0.9% 1000 Ml) 1,000 mls @ 75 mls/hr IV DIRECT [facility] Last Admin: 06/19/22 09:59 Dose: 75 mls/hr Sodium Chloride (Nacl 0.9% 500 Ml) 500 mls @ 0 mls/hr IV ONCE [facility] Stop: 06/19/22 16:05 Miscellaneous Medication (Clozapine [Clozaril]) 200 mg PO HS [facility] Morphine Sulfate (Morphine 2 Mg/1 Ml Inj) 2 mg IV Q4H PRN PRN Reason: Pain, Moderate (4-6) Olanzapine (Olanzapine 10 Mg Tab) 20 mg PO HS [facility] Last Admin: 06/18/22 23:12 Dose: 20 mg Ondansetron HCl (Ondansetron 4 Mg/2 Ml Inj) 4 mg IV Q8H PRN PRN Reason: Nausea And Vomiting Oxycodone/Acetaminophen (Oxycodone /Acetaminophen 5-325mg Tab) 2 tab PO Q6H PRN PRN Reason: Pain, Moderate (4-6) Paroxetine HCl (Paroxetine 20 Mg Tab) 20 mg PO HS [facility] Last Admin: 06/18/22 23:15 Dose: 20 mg Pravastatin Sodium (Pravastatin 20 Mg Tab) 20 mg PO QHS [facility] Last Admin: 06/18/22 23:08 Dose: 20 mg Propranolol HCl (Propranolol 40 Mg Tab) 40 mg PO BID [facility] Last Admin: 06/18/22 23:26 Dose: 40 mg Sodium Chloride (Sodium Chloride 0.9% Irrig Soln 2000 Ml) 2,000 ml IR DIRECT [facility] Last Admin: 06/19/22 07:03 Dose: 2,000 ml Sodium Chloride (Sodium Chloride 0.9% 10 Ml Flush Syringe) 10 ml IV BID [facility] Last Admin: 06/18/22 23:19 Dose: 10 ml Sodium Chloride (Sodium Chloride 0.9% 10 Ml Flush Syringe) 10 ml IV PRN PRN PRN Reason: LINE FLUSH Zolpidem Tartrate (Zolpidem 5 Mg Tab) 5 mg PO QHS PRN PRN Reason: Sleep Review of Systems All systems: negative (see HPI) Exam - Constitutional Vitals: Temp Pulse Resp BP Pulse Ox 98.8 F 69 18 116/66 94 06/18/22 20:00 06/18/22 20:00 06/18/22 20:00 06/18/22 20:00 06/19/22 08:20 General appearance: Present: no acute distress - EENT Eyes: Present: EOM intact ENT: hearing intact - Neck Neck: Present: supple - Respiratory Respiratory effort: normal - Extremities Extremities: normal temperature, normal color - Abdominal General gastrointestinal: Present: soft, non-tender, other (Soriano in place, reddish urine that can be seen through, few clots, no significant hematuria) - Psychiatric Psychiatric: appropriate mood/affect, cooperative Results - Labs CBC & Chem 7: 06/19/22 04:40 06/19/22 04:40 Labs: Abnormal lab results 06/18/22 06/19/22 06/19/22 Range/Units 19:38 04:40 04:40 RBC 3.48 L (3.65-5.03) M/mm3 Hgb 11.6 L (11.8-15.2) gm/dl Hct 34.5 L (35.5-45.6) % MCV 99 H (84-94) fl MCH 33 H (28-32) pg RDW 12.6 L (13.2-15.2) % Teller % (Auto) 10.0 H (0.0-7.3) % Teller # (Auto) 0.9 H (0.0-0.8) K/mm3 Calcium 8.1 L (8.4-10.2) mg/dL Crossmatch See Detail Assessment and Plan 72-year-old male with 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 Soriano in place draining predominantly clear urine with reddish discoloration and a few scattered clots. Patient doing well. If hematuria worsens, can consider embolization.
[2022-06-19] MEDS: PROPRANOLOL 40 MG TAB PO SCH ×2 (13:07→22:30)
[2022-06-19] MEDS ORDERED: SODIUM CHLORIDE 0.9% IRR 500 ML BOTTLE IR PRN (18:32)
[2022-06-19] MEDS: diphenhydrAMINE 25 MG CAP PO SCH (22:25)
[2022-06-19] MEDS: PRAVASTATIN 20 MG TAB PO SCH (22:26)
[2022-06-19] MEDS: PARoxetine 20 MG TAB PO SCH (22:26)
--- NOTE | 2022-06-20 07:33 | Progress Note ---
Assessment and Plan - Patient Problems (1) Hematuria Current Visit: Yes Status: Acute Qualifiers: Hematuria type: gross Qualified Code(s): R31.0 - Gross hematuria Plan to address problem: Secondary to bladder cancer Awan drip if necessary IV fluids H&H stable IR consult appreciated Possible cystic artery embolization if necessary (2) Hypertension Current Visit: Yes Status: Chronic Qualifiers: Hypertension type: primary hypertension Qualified Code(s): I10 - Essential (primary) hypertension Plan to address problem: On propranolol twice daily (3) Hyperlipidemia Current Visit: Yes Status: Chronic Qualifiers: Hyperlipidemia type: mixed hyperlipidemia Qualified Code(s): E78.2 - Mixed hyperlipidemia Plan to address problem: On statins (4) DVT prophylaxis Current Visit: Yes Status: Acute Plan to address problem: SCDs and GI prophylaxis (5) Advance care planning Current Visit: Yes Status: Acute Subjective Date of service: 06/19/22 Principal diagnosis: HEMATURIA Interval history: Hematuria persists Objective - Constitutional Vitals: Vital Signs - 12hr 06/19/22 06/19/22 06/19/22 21:26 21:27 22:30 Temperature 99.9 F H Pulse Rate 77 77 Respiratory 16 Rate Blood Pressure 128/66 128/66 O2 Sat by Pulse 94 95 Oximetry 06/20/22 06/20/22 04:00 04:29 Temperature 98.3 F Pulse Rate Respiratory 24 16 Rate Blood Pressure 153/86 O2 Sat by Pulse 96 56 L Oximetry General appearance: Present: no acute distress, well-nourished - EENT Eyes: PERRL, EOM intact ENT: hearing intact, clear oral mucosa Ears: bilateral: normal - Neck Neck: supple, normal ROM - Respiratory Respiratory effort: normal Respiratory: bilateral: CTA - Breasts Breasts: normal - Cardiovascular Heart rate: 78 Rhythm: regular Heart Sounds: Present: S1 & S2. Absent: gallop, rub Extremities: pulses intact, No edema, normal color, Full ROM - Gastrointestinal General gastrointestinal: Present: soft, non-tender, non-distended, normal bowel sounds - Genitourinary Male genitourinary: normal - Integumentary Integumentary: clear, warm, dry - Musculoskeletal Musculoskeletal: 1, strength equal bilaterally - Neurologic Neurologic: moves all extremities - Psychiatric Psychiatric: memory intact, appropriate mood/affect, intact judgment & insight - Allied health notes Allied health notes reviewed: nursing, case management - Labs CBC & Chem 7: 06/19/22 04:40 06/19/22 04:40 Labs: Abnormal lab results 06/18/22 Range/Units 19:38 Crossmatch See Detail
--- NOTE | 2022-06-20 07:35 | Progress Note ---
Assessment and Plan - Patient Problems (1) Hematuria Current Visit: Yes Status: Acute Qualifiers: Hematuria type: gross Qualified Code(s): R31.0 - Gross hematuria Plan to address problem: Secondary to bladder cancer Awan drip if necessary IV fluids H&H stable IR consult appreciated Possible cystic artery embolization if necessary (2) Hypertension Current Visit: Yes Status: Chronic Qualifiers: Hypertension type: primary hypertension Qualified Code(s): I10 - Essential (primary) hypertension Plan to address problem: On propranolol twice daily (3) Hyperlipidemia Current Visit: Yes Status: Chronic Qualifiers: Hyperlipidemia type: mixed hyperlipidemia Qualified Code(s): E78.2 - Mixed hyperlipidemia Plan to address problem: On statins (4) DVT prophylaxis Current Visit: Yes Status: Acute Plan to address problem: SCDs and GI prophylaxis (5) Advance care planning Current Visit: Yes Status: Acute Plan to address problem: Disease education conducted, care plan discussed, prognosis discussed prognosis discussed and patient is understanding care plan of. +30 minutes. Subjective Date of service: 06/20/22 Principal diagnosis: HEMATURIA Interval history: Hematuria better Objective - Constitutional Vitals: Vital Signs - 12hr 06/19/22 06/19/22 06/19/22 21:26 21:27 22:30 Temperature 99.9 F H Pulse Rate 77 77 Respiratory 16 Rate Blood Pressure 128/66 128/66 O2 Sat by Pulse 94 95 Oximetry 06/20/22 06/20/22 04:00 04:29 Temperature 98.3 F Pulse Rate Respiratory 24 16 Rate Blood Pressure 153/86 O2 Sat by Pulse 96 56 L Oximetry General appearance: Present: no acute distress, well-nourished - EENT Eyes: PERRL, EOM intact ENT: hearing intact, clear oral mucosa Ears: bilateral: normal - Neck Neck: supple, normal ROM - Respiratory Respiratory effort: normal Respiratory: bilateral: CTA - Breasts Breasts: normal - Cardiovascular Heart rate: 78 Rhythm: regular Heart Sounds: Present: S1 & S2. Absent: gallop, rub Extremities: pulses intact, No edema, normal color, Full ROM - Gastrointestinal General gastrointestinal: Present: soft, non-tender, non-distended, normal bowel sounds - Genitourinary Male genitourinary: normal - Integumentary Integumentary: clear, warm, dry - Musculoskeletal Musculoskeletal: 1, strength equal bilaterally - Neurologic Neurologic: moves all extremities - Psychiatric Psychiatric: memory intact, appropriate mood/affect, intact judgment & insight - Labs CBC & Chem 7: 06/19/22 04:40 06/19/22 04:40 Labs: Abnormal lab results 06/18/22 Range/Units 19:38 Crossmatch See Detail
[2022-06-20] MEDS: carBAMazepine 200 MG TAB PO SCH (10:15)
[2022-06-20] MEDS: PROPRANOLOL 40 MG TAB PO SCH (10:15)
[2022-06-20] MEDS: DOCUSATE SODIUM 100 MG CAP PO SCH (10:15)
[2022-06-20 10:16] VITALS: BP 132/70
--- NOTE | 2022-06-20 12:17 | Progress Note ---
Assessment and Plan urine clear cath out home today path pending ir and med notes appreciated Subjective Date of service: 06/20/22 Principal diagnosis: HEMATURIA Objective - Constitutional Vitals: Vital Signs - 12hr 06/20/22 06/20/22 06/20/22 04:00 04:29 10:15 Temperature 98.3 F Pulse Rate 70 Respiratory 24 16 Rate Blood Pressure 153/86 132/70 Blood Pressure [Left] O2 Sat by Pulse 96 56 L Oximetry 06/20/22 06/20/22 10:17 11:31 Temperature 98.9 F Pulse Rate 70 Respiratory 16 Rate Blood Pressure Blood Pressure 132/70 [Left] O2 Sat by Pulse 97 98 Oximetry General appearance: Present: no acute distress - Neck Neck: supple - Respiratory Respiratory effort: normal Extremities: no ischemia - Gastrointestinal General gastrointestinal: Present: soft, non-tender - Labs CBC & Chem 7: 06/19/22 04:40 06/19/22 04:40 Medications & Allergies - Medications Allergies/Adverse Reactions: Allergies No Known Allergies Allergy (Unverified 08/19/18 08:50) Home Medications: Home Medications Medication Instructions Recorded Confirmed Last Taken Type Benadryl 50 mg PO HS 06/08/22 06/08/22 06/17/22 History Mv-Mn/Folic/Q10/Lycopen/Lutein 1 cap PO DAILY 06/08/22 06/08/22 06/17/22 History [One-Daily Multi Caps] OLANZapine [Zyprexa] 20 mg PO HS 06/08/22 06/08/22 06/17/22 History PARoxetine [Paxil] 20 mg PO HS 06/08/22 06/08/22 06/17/22 History Pravastatin [Pravachol] 20 mg PO QHS 06/08/22 06/08/22 06/17/22 History Stool Softener 1 cap PO DAILY 06/08/22 06/08/22 06/17/22 History carBAMazepine [Carbamazepine] 100 mg PO DAILY 06/08/22 06/08/22 06/18/22 04:45 History cloZAPine [Clozaril] 200 mg PO HS 06/08/22 06/08/22 06/17/22 History propranoloL [Inderal] 40 mg PO BID 06/08/22 06/08/22 06/18/22 04:45 History Active Medications: Generic Name Dose Route Start Last Admin Trade Name Freq PRN Reason Stop Dose Admin Acetaminophen 650 mg 06/18/22 15:49 Acetaminophen 325 Mg Tab PO Q4H PRN Pain MILD(1-3)/Fever >100.5/BRICE Carbamazepine 100 mg 06/18/22 18:00 06/20/22 10:15 Carbamazepine 200 Mg Tab PO 100 mg DAILY LESLIE Administration Diphenhydramine HCl 50 mg 06/18/22 22:00 06/19/22 22:25 Diphenhydramine 25 Mg Cap PO 50 mg HS LESLIE Administration Docusate Sodium 100 mg 06/18/22 22:00 06/20/22 10:15 Docusate Sodium 100 Mg Cap PO 100 mg BID LESLIE Administration Sodium Chloride 1,000 mls @ 75 mls/hr 06/18/22 16:00 06/19/22 09:59 Nacl 0.9% 1000 Ml IV 75 mls/hr DIRECT LESLIE Administration Miscellaneous Medication 200 mg 06/18/22 22:00 Clozapine [Clozaril] PO HS LESLIE Morphine Sulfate 2 mg 06/18/22 15:49 Morphine 2 Mg/1 Ml Inj IV Q4H PRN Pain, Moderate (4-6) Olanzapine 20 mg 06/18/22 22:00 06/19/22 22:28 Olanzapine 10 Mg Tab PO 20 mg HS LESLIE Administration Ondansetron HCl 4 mg 06/18/22 15:49 Ondansetron 4 Mg/2 Ml Inj IV Q8H PRN Nausea And Vomiting Oxycodone/Acetaminophen 2 tab 06/18/22 14:57 Oxycodone /Acetaminophen 5-325mg Tab PO Q6H PRN Pain, Moderate (4-6) Paroxetine HCl 20 mg 06/18/22 22:00 06/19/22 22:26 Paroxetine 20 Mg Tab PO 20 mg HS LESLIE Administration Pravastatin Sodium 20 mg 06/18/22 22:00 06/19/22 22:26 Pravastatin 20 Mg Tab PO 20 mg QHS LESLIE Administration Propranolol HCl 40 mg 06/18/22 18:00 06/20/22 10:15 Propranolol 40 Mg Tab PO 40 mg BID LESLIE Administration Sodium Chloride 2,000 ml 06/18/22 15:00 06/19/22 07:03 Sodium Chloride 0.9% Irrig Soln 2000 Ml IR 2,000 ml DIRECT LESLIE Administration Sodium Chloride 10 ml 06/18/22 16:00 06/20/22 10:16 Sodium Chloride 0.9% 10 Ml Flush Syringe IV Not Given BID LESLIE Sodium Chloride 10 ml 06/18/22 15:49 Sodium Chloride 0.9% 10 Ml Flush Syringe IV PRN PRN LINE FLUSH Sodium Chloride 500 ml 06/19/22 18:32 Sodium Chloride 0.9% Irr 500 Ml Bottle IR DIRECT PRN Wound Care Zolpidem Tartrate 5 mg 06/18/22 14:57 Zolpidem 5 Mg Tab PO QHS PRN Sleep
--- NOTE | 2022-06-20 12:21 | Discharge Summary ---
Providers - Providers Date of Admission: 06/20/22 11:35 Date of discharge: 06/20/22 Attending physician: NIRAV LOPEZ 06/18/22 Consult to Case Management [CONS] Routine Services Needed at Discharge: Bag Printer Notified:: MYRTLE 06/18/22 15:49 Consult to Physician [CONS] Routine Comment: Consulting Provider: BEBETO OWUSU Physician Instructions: Reason For Exam: Medical management Primary care physician: GENA ESPINOZA MD Hospitalization Condition: Fair Pertinent studies: cysto ir ct Disposition: HOME HEALTH CARE SERVICE Final Discharge Diagnosis (Prints w/discharge instructions): bladder cancer Core Measure Documentation - Palliative Care Palliative Care/ Comfort Measures: Not Applicable - Core Measures Any of the following diagnoses?: none - VTE Discharge Requirements Deep Vein Thrombosis/Pulmonary Embolism Present on Admission: No Has pt received <5 days of overlap therapy or INR<2.0: No Anticoagulant overlap therapy prescribed at discharge: No - Stroke Discharge Requirements Statin for LDL = or >70 mg/dl on DC: Not Applicable Exam - Constitutional Vitals: Temp Pulse Resp BP Pulse Ox 98.9 F 70 16 132/70 98 06/20/22 10:17 06/20/22 10:17 06/20/22 10:17 06/20/22 10:17 06/20/22 11:31 General appearance: Present: no acute distress - Extremities Extremities: no ischemia - Abdominal General gastrointestinal: Present: soft, non-tender Plan Activity: other (no straining ) Weight Bearing Status: Partial Weight Bearing Diet: regular Special Instructions: other (inc fluids ) Durable Medical Equipment Needed Upon Discharge: Walker-Standard, Walker-Rolling Follow up with: NIRAV LOPEZ MD [Staff Physician] - 7 Days GENA ESPINOZA MD [Primary Care Provider] - 7 Days
--- NOTE | 2022-06-20 12:24 | Discharge Summary ---
Short Stay Discharge Plan Activity: other Weight Bearing Status: Non-Weight Bearing Diet: regular Additional Instructions: NO STRAINING. DIET:LOW SALT,LOW CHOLESTEROL, LOW FAT. INCREASE ORAL FLUIDS. HOME WITH [employer]HE[employer]. CALL FOR F/U APPT. Follow up with: NIRAV LOPEZ MD [Staff Physician] - 7 Days GENA ESPINOZA MD [Primary Care Provider] - 7 Days
--- NOTE | 2022-06-20 12:25 | Discharge Summary ---
Short Stay Discharge Plan Activity: no restrictions (no straing ) Weight Bearing Status: Full Weight Bearing Diet: regular, low fat Additional Instructions: NO STRAINING. DIET:LOW SALT,LOW CHOLESTEROL, LOW FAT. INCREASE ORAL FLUIDS. HOME WITH [employer] CATHETER. CALL FOR F/U APPT. Follow up with: NIRAV LOPEZ MD [Staff Physician] - 7 Days GENA ESPINOZA MD [Primary Care Provider] - 7 Days
== END 2022-06-20 14:25 | disposition home or self-care (01) | DRG 669 ==
LOC: OR 05:57 → 3A 11:35 → OBSVTOIN 06-20 11:35
PROVIDERS: ADMIT Internal Medicine; ATTEND Urology
PROC: 0TBB8ZZ Excision of Bladder, Via Natural or Artificial Opening Endoscopic (ICD-10-PCS; principal; 2022-06-20)
DX: C67.9 Malignant neoplasm of bladder, unspecified (principal); N02.9 Recurrent and persistent hematuria with unspecified morphologic changes; Z20.822 Contact with and (suspected) exposure to COVID-19; I10 Essential (primary) hypertension; E78.2 Mixed hyperlipidemia; Z82.49 Family history of ischemic heart disease and other diseases of the circulatory system; Z87.891 Personal history of nicotine dependence; Z85.46 Personal history of malignant neoplasm of prostate
CPT/HCPCS: 36415; 74018; 80048; 80053; 85014; 85018; 85025; 85027; 86850; 86900; 86901; 86920; 88112; 88305; 88341; 88342; G0378; J3490; C1726; C1758; C1769; J0360; J0461; J0690; J1100; J1170; J2250; J2405; J2704; J3010; J7030; J7120; Q9968; U0003